=== PATIENT | male | born 1960 | race Hispanic/Latino ===

== ENCOUNTER 2020-11-17 11:11 | Inpatient (IN) | payer OTHER ==
[~2020-11-17] VITALS: Ht 188 cm; Wt 112.5 kg
[2020-11-17] MEDS ORDERED: ONDANSETRON HCL INJ 2MG/ML 2ML 2 MG/ML VIAL IV STA (11:34)
[2020-11-17] MEDS ORDERED: KETOROLAC TROMETHAMINE 30 MG/ML VIAL IV STA (11:34)
[2020-11-17] MEDS ORDERED: ACETAMINOPHEN 325 MG TAB PO ONE (11:45)
[2020-11-17] MEDS ORDERED: SODIUM CHLORIDE 0.9% 1000ML 1,000 ML IV SCH (11:45)
[2020-11-17 11:46] LABS: HEMATOCRIT 48.6 % (38.2-49.6); HEMOGLOBIN 16.1 g/dL (14.0-18.0); LYMPHOCYTES # (AUTO) 0.4 (1.0-3.2); LYMPHOCYTES % 7.5 % (18.0-39.1); MEAN CORPUSCULAR HEMOGLOBIN 29.1 pg (28-32); MEAN CORPUSCULAR HGB CONC 33.1 g/dL (31-35); MEAN CORPUSCULAR VOLUME 87.7 fL (81-99); MONOCYTES # (AUTO) 0.2 (0.2-0.8); MONOCYTES % 2.9 % (4.4-11.3); NEUTROPHILS # (AUTO) 5.3 (2.1-6.9); NEUTROPHILS % 89.3 % (38.7-80.0); PLATELET COUNT 150 x10e3/uL (140-360); RED BLOOD COUNT 5.54 x10e6/uL (4.3-5.7); RED CELL DISTRIBUTION WIDTH 14.5 % (11.7-14.4)
[2020-11-17 12:21] LABS: ALBUMIN 3.1 g/dL (3.5-5.0); ALBUMIN/GLOBULIN RATIO 0.8 (0.8-2.0); ANION GAP 19.3 mmol/L (8-16); CALCIUM 8.1 mg/dL (8.4-10.2); CREATININE, SERUM 1.38 mg/dL (0.72-1.25); POTASSIUM 4.3 mmol/L (3.5-5.1)
[2020-11-17] MEDS ORDERED: DEXAMETHASONE SOD PHOS 10 MG/1 ML VIAL IV ONE (12:45)
[2020-11-17] MEDS ORDERED: ONDANSETRON HCL INJ 2MG/ML 2ML 2 MG/ML VIAL IV PRN (13:00)
[2020-11-17 14:30] VITALS: BP 129/78
[2020-11-17] MEDS ORDERED: REMDESIVIR 200MG/NS 100ML 200 MG in SODIUM CHLORIDE 0.9% 100 ML 100 ML IV ONE (15:00)
[2020-11-17 16:12] VITALS: BP 129/70
[2020-11-17] MEDS: DEXAMETHASONE 4 MG TAB PO SCH (17:12)
[2020-11-17] MEDS: ENOXAPARIN SOD INJ 40 MG/0.4 ML SYR SC SCH (17:12)
[2020-11-17] MEDS: CEFTRIAXONE 1 GM in SODIUM CHLORIDE 0.9% 50ML 50 ML IV SCH ×2 (17:12→19:30)
[2020-11-17] MEDS: SODIUM CHLORIDE 0.9% 1000ML 1,000 ML IV SCH (18:15)
[2020-11-17 20:44] VITALS: BP 129/70
[2020-11-17 21:00] VITALS: BP 176/77
[2020-11-18] VITALS (8 sets, daily range): BP systolic 129–185; BP diastolic 58–76
[2020-11-18 05:14] LABS: HEMATOCRIT 45.2 % (38.2-49.6); HEMOGLOBIN 14.9 g/dL (14.0-18.0); LYMPHOCYTES # (AUTO) 0.5 (1.0-3.2); LYMPHOCYTES % 10.3 % (18.0-39.1); MEAN CORPUSCULAR HEMOGLOBIN 28.6 pg (28-32); MEAN CORPUSCULAR VOLUME 86.8 fL (81-99); MONOCYTES # (AUTO) 0.2 (0.2-0.8); MONOCYTES % 3.6 % (4.4-11.3); NEUTROPHILS # (AUTO) 4.2 (2.1-6.9); NEUTROPHILS % 85.5 % (38.7-80.0); PLATELET COUNT 162 x10e3/uL (140-360); RED BLOOD COUNT 5.21 x10e6/uL (4.3-5.7); RED CELL DISTRIBUTION WIDTH 14.5 % (11.7-14.4)
[2020-11-18] MEDS: SODIUM CHLORIDE 0.9% 1000ML 1,000 ML IV SCH ×3 (05:31→20:56)
[2020-11-18 05:58] LABS: ANION GAP 15.2 mmol/L (8-16); CALCIUM 7.9 mg/dL (8.4-10.2); CREATININE, SERUM 1.15 mg/dL (0.72-1.25); POTASSIUM 4.2 mmol/L (3.5-5.1)
[2020-11-18] MEDS: DEXAMETHASONE 4 MG TAB PO SCH (08:51)
[2020-11-18 09:55] LABS: BAND NEUTROPHILS % (MANUAL) 5 %; LYMPHOCYTES % (MANUAL) 6 % (19-48); MONOCYTES % (MANUAL) 4 % (3.4-9.0); NEUTROPHILS % (MANUAL) 82 % (40-74); PLATELET ESTIMATE ADEQUATE; PLATELET MORPHOLOGY COMMENT NORMAL; RBC MORPHOLOGY COMMENT NORMAL
[2020-11-18] MEDS ORDERED: LABETALOL HCL 5 MG/ML 20ML VIAL IV PRN (10:30)
[2020-11-18] MEDS: CARVEDILOL 3.125 MG TAB PO SCH ×2 (10:45→16:54)
[2020-11-18] MEDS: NIFEDIPINE CR 30 MG TAB PO SCH (10:45)
[2020-11-18] MEDS: CEPACOL SORE THROAT LOZENGES PO PRN ×2 (11:00→16:00)
[2020-11-18] MEDS: REMDESIVIR 100MG/NS 100ML 100 MG in SODIUM CHLORIDE 0.9% 100 ML 100 ML IV SCH (14:00)
[2020-11-18] MEDS: ENOXAPARIN SOD INJ 40 MG/0.4 ML SYR SC SCH (16:54)
[2020-11-19] VITALS (9 sets, daily range): BP systolic 120–153; BP diastolic 57–74
[2020-11-19 05:05] LABS: BASOPHILS % 0.2 % (0.0-1.0); HEMATOCRIT 44.6 % (38.2-49.6); HEMOGLOBIN 14.5 g/dL (14.0-18.0); LYMPHOCYTES # (AUTO) 0.9 (1.0-3.2); LYMPHOCYTES % 17.6 % (18.0-39.1); MEAN CORPUSCULAR HEMOGLOBIN 28.8 pg (28-32); MEAN CORPUSCULAR HGB CONC 32.5 g/dL (31-35); MEAN CORPUSCULAR VOLUME 88.7 fL (81-99); MONOCYTES # (AUTO) 0.4 (0.2-0.8); MONOCYTES % 7.7 % (4.4-11.3); NEUTROPHILS # (AUTO) 3.8 (2.1-6.9); NEUTROPHILS % 73.5 % (38.7-80.0); PLATELET COUNT 183 x10e3/uL (140-360); RED BLOOD COUNT 5.03 x10e6/uL (4.3-5.7); RED CELL DISTRIBUTION WIDTH 14.7 % (11.7-14.4)
[2020-11-19 05:28] LABS: ANION GAP 12.5 mmol/L (8-16); CALCIUM 7.7 mg/dL (8.4-10.2); CREATININE, SERUM 1.05 mg/dL (0.72-1.25); POTASSIUM 4.5 mmol/L (3.5-5.1)
[2020-11-19] MEDS: NIFEDIPINE CR 30 MG TAB PO SCH (09:00)
[2020-11-19] MEDS: CEFTRIAXONE 1 GM in SODIUM CHLORIDE 0.9% 50ML 50 ML IV SCH (09:10)
[2020-11-19] MEDS: DEXAMETHASONE 4 MG TAB PO SCH (09:10)
[2020-11-19] MEDS: CARVEDILOL 3.125 MG TAB PO SCH ×2 (09:10→18:37)
[2020-11-19] MEDS: REMDESIVIR 100MG/NS 100ML 100 MG in SODIUM CHLORIDE 0.9% 100 ML 100 ML IV SCH (14:59)
[2020-11-19] MEDS: ENOXAPARIN SOD INJ 40 MG/0.4 ML SYR SC SCH (18:37)
[2020-11-20] VITALS (14 sets, daily range): BP systolic 126–164; BP diastolic 65–114
[2020-11-20 05:28] LABS: BASOPHILS % 0.3 % (0.0-1.0); HEMATOCRIT 43.7 % (38.2-49.6); HEMOGLOBIN 14.3 g/dL (14.0-18.0); LYMPHOCYTES # (AUTO) 1.2 (1.0-3.2); LYMPHOCYTES % 19.8 % (18.0-39.1); MEAN CORPUSCULAR HGB CONC 32.7 g/dL (31-35); MEAN CORPUSCULAR VOLUME 88.6 fL (81-99); MONOCYTES # (AUTO) 0.6 (0.2-0.8); NEUTROPHILS % 68.7 % (38.7-80.0); PLATELET COUNT 165 x10e3/uL (140-360); RED BLOOD COUNT 4.93 x10e6/uL (4.3-5.7); RED CELL DISTRIBUTION WIDTH 14.9 % (11.7-14.4)
[2020-11-20 05:41] LABS: ALBUMIN 2.4 g/dL (3.5-5.0); ALBUMIN/GLOBULIN RATIO 0.7 (0.8-2.0); ANION GAP 13.3 mmol/L (8-16); CALCIUM 7.9 mg/dL (8.4-10.2); CREATININE, SERUM 0.82 mg/dL (0.72-1.25); POTASSIUM 4.3 mmol/L (3.5-5.1)
[2020-11-20 06:47] LABS: BAND NEUTROPHILS % (MANUAL) 3 %; LYMPHOCYTES % (MANUAL) 18 % (19-48); MONOCYTES % (MANUAL) 12 % (3.4-9.0); NEUTROPHILS % (MANUAL) 67 % (40-74); PLATELET ESTIMATE ADEQUATE; POLYCHROMASIA FEW; RBC MORPHOLOGY COMMENT NORMAL
[2020-11-20] MEDS: CEFTRIAXONE 1 GM in SODIUM CHLORIDE 0.9% 50ML 50 ML IV SCH (09:25)
[2020-11-20] MEDS: CARVEDILOL 3.125 MG TAB PO SCH ×2 (09:25→17:40)
[2020-11-20] MEDS: DEXAMETHASONE 4 MG TAB PO SCH (09:26)
[2020-11-20] MEDS: NIFEDIPINE CR 30 MG TAB PO SCH (09:26)
[2020-11-20] MEDS ORDERED: TOCILIZUMAB 400 MG in SODIUM CHLORIDE 0.9% 100 ML IV ONE (14:00)
[2020-11-20] MEDS: REMDESIVIR 100MG/NS 100ML 100 MG in SODIUM CHLORIDE 0.9% 100 ML 100 ML IV SCH (15:55)
[2020-11-20] MEDS: ENOXAPARIN SOD INJ 40 MG/0.4 ML SYR SC SCH (17:39)
[2020-11-21] VITALS (16 sets, daily range): BP systolic 114–152; BP diastolic 49–100
[2020-11-21] MEDS ORDERED: DEXMEDETOMIDINE 200MCG/NS 50ML 50 ML IV ONE (01:14)
[2020-11-21] MEDS: DEXMEDETOMIDINE 200MCG/NS 50ML 50 ML IV SCH ×3 (01:44→21:00)
[2020-11-21 05:28] LABS: BASOPHILS % 0.3 % (0.0-1.0); HEMATOCRIT 41.5 % (38.2-49.6); HEMOGLOBIN 13.5 g/dL (14.0-18.0); LYMPHOCYTES # (AUTO) 1.2 (1.0-3.2); LYMPHOCYTES % 20.7 % (18.0-39.1); MEAN CORPUSCULAR HEMOGLOBIN 28.8 pg (28-32); MEAN CORPUSCULAR HGB CONC 32.5 g/dL (31-35); MEAN CORPUSCULAR VOLUME 88.5 fL (81-99); MONOCYTES # (AUTO) 0.2 (0.2-0.8); MONOCYTES % 3.3 % (4.4-11.3); NEUTROPHILS # (AUTO) 4.3 (2.1-6.9); NEUTROPHILS % 74.5 % (38.7-80.0); PLATELET COUNT 106 x10e3/uL (140-360); RED BLOOD COUNT 4.69 x10e6/uL (4.3-5.7); RED CELL DISTRIBUTION WIDTH 14.6 % (11.7-14.4)
[2020-11-21 05:56] LABS: ALBUMIN 2.3 g/dL (3.5-5.0); ALBUMIN/GLOBULIN RATIO 0.7 (0.8-2.0); ANION GAP 13.8 mmol/L (8-16); CALCIUM 7.7 mg/dL (8.4-10.2); CREATININE, SERUM 0.73 mg/dL (0.72-1.25); POTASSIUM 3.8 mmol/L (3.5-5.1)
[2020-11-21 08:38] LABS: BAND NEUTROPHILS % (MANUAL) 3 %; LYMPHOCYTES % (MANUAL) 18 % (19-48); MONOCYTES % (MANUAL) 4 % (3.4-9.0); NEUTROPHILS % (MANUAL) 75 % (40-74)
[2020-11-21] MEDS: CARVEDILOL 3.125 MG TAB PO SCH ×2 (09:00→18:10)
[2020-11-21] MEDS: CEFTRIAXONE 1 GM in SODIUM CHLORIDE 0.9% 50ML 50 ML IV SCH (09:52)
[2020-11-21] MEDS: DEXAMETHASONE SOD PHOS 10 MG/1 ML VIAL IV SCH (12:24)
[2020-11-21] MEDS: NIFEDIPINE CR 30 MG TAB PO SCH (12:24)
[2020-11-21] MEDS: REMDESIVIR 100MG/NS 100ML 100 MG in SODIUM CHLORIDE 0.9% 100 ML 100 ML IV SCH (13:51)
[2020-11-21] MEDS ORDERED: SODIUM CHLORIDE 0.9% 250ML 250 ML ONE (13:58)
[2020-11-21] MEDS: ENOXAPARIN SOD INJ 40 MG/0.4 ML SYR SC SCH (18:10)
[2020-11-21] MEDS ORDERED: DEXAMETHASONE SOD PHOS 10 MG/1 ML VIAL IV SCH (21:00)
[2020-11-22] VITALS (26 sets, daily range): BP systolic 109–138; BP diastolic 59–86
[2020-11-22] MEDS: DEXMEDETOMIDINE 200MCG/NS 50ML 50 ML IV SCH ×7 (00:17→22:40)
[2020-11-22 05:00] LABS: BASOPHILS % 0.3 % (0.0-1.0); EOSINOPHILS % 0.3 % (0.0-6.0); HEMATOCRIT 42.3 % (38.2-49.6); HEMOGLOBIN 13.7 g/dL (14.0-18.0); LYMPHOCYTES # (AUTO) 0.8 (1.0-3.2); LYMPHOCYTES % 20.8 % (18.0-39.1); MEAN CORPUSCULAR HEMOGLOBIN 29.1 pg (28-32); MEAN CORPUSCULAR HGB CONC 32.4 g/dL (31-35); MONOCYTES # (AUTO) 0.1 (0.2-0.8); MONOCYTES % 2.8 % (4.4-11.3); NEUTROPHILS # (AUTO) 2.9 (2.1-6.9); NEUTROPHILS % 74.5 % (38.7-80.0); PLATELET COUNT 59 x10e3/uL (140-360); RED CELL DISTRIBUTION WIDTH 14.9 % (11.7-14.4)
[2020-11-22 05:11] LABS: INR 1.3; PARTIAL THROMBOPLASTIN TIME 25.6 seconds (23.8-35.5); PROTHROMBIN TIME 16.4 seconds (11.9-14.5)
[2020-11-22 05:31] LABS: ALBUMIN 2.4 g/dL (3.5-5.0); ALBUMIN/GLOBULIN RATIO 0.6 (0.8-2.0); ANION GAP 18.6 mmol/L (8-16); CALCIUM 7.9 mg/dL (8.4-10.2); CREATININE, SERUM 1.02 mg/dL (0.72-1.25); POTASSIUM 4.6 mmol/L (3.5-5.1)
[2020-11-22] MEDS: DEXAMETHASONE SOD PHOS 10 MG/1 ML VIAL IV SCH (08:28)
[2020-11-22] MEDS: CARVEDILOL 3.125 MG TAB PO SCH ×2 (08:29→16:20)
[2020-11-22] MEDS: NIFEDIPINE CR 30 MG TAB PO SCH (08:29)
[2020-11-22 09:18] LABS: BAND NEUTROPHILS % (MANUAL) 4 %; LYMPHOCYTES % (MANUAL) 10 % (19-48); MONOCYTES % (MANUAL) 5 % (3.4-9.0); NEUTROPHILS % (MANUAL) 81 % (40-74)
[2020-11-22 09:19] LABS: PLATELET ESTIMATE MARKEDLY DECREASED; PLATELET MORPHOLOGY COMMENT FEW LARGE; RBC MORPHOLOGY COMMENT NORMAL
[2020-11-22] MEDS ORDERED: SODIUM CHLORIDE 0.45% 1,000 ML IV ONE (16:00)
[2020-11-22] MEDS: APIXAB 2.5 MG TABLET PO SCH (21:40)
[2020-11-23] VITALS (25 sets, daily range): BP systolic 112–143; BP diastolic 57–84
[2020-11-23] MEDS: DEXMEDETOMIDINE 200MCG/NS 50ML 50 ML IV SCH ×6 (02:08→23:58)
[2020-11-23 04:56] LABS: BASOPHILS % 0.2 % (0.0-1.0); EOSINOPHILS % 0.2 % (0.0-6.0); HEMATOCRIT 42.2 % (38.2-49.6); HEMOGLOBIN 13.6 g/dL (14.0-18.0); LYMPHOCYTES # (AUTO) 0.8 (1.0-3.2); LYMPHOCYTES % 16.3 % (18.0-39.1); MEAN CORPUSCULAR HEMOGLOBIN 29.1 pg (28-32); MEAN CORPUSCULAR HGB CONC 32.2 g/dL (31-35); MEAN CORPUSCULAR VOLUME 90.2 fL (81-99); MONOCYTES # (AUTO) 0.2 (0.2-0.8); MONOCYTES % 4.4 % (4.4-11.3); NEUTROPHILS # (AUTO) 3.9 (2.1-6.9); NEUTROPHILS % 77.3 % (38.7-80.0); PLATELET COUNT 71 x10e3/uL (140-360); RED BLOOD COUNT 4.68 x10e6/uL (4.3-5.7)
[2020-11-23 05:21] LABS: ALBUMIN 2.2 g/dL (3.5-5.0); ALBUMIN/GLOBULIN RATIO 0.5 (0.8-2.0); ANION GAP 15.7 mmol/L (8-16); CALCIUM 7.7 mg/dL (8.4-10.2); CREATININE, SERUM 0.83 mg/dL (0.72-1.25); POTASSIUM 4.7 mmol/L (3.5-5.1)
[2020-11-23] MEDS: DEXAMETHASONE SOD PHOS 10 MG/1 ML VIAL IV SCH (08:57)
[2020-11-23] MEDS: CARVEDILOL 3.125 MG TAB PO SCH ×2 (08:58→17:23)
[2020-11-23] MEDS: NIFEDIPINE CR 30 MG TAB PO SCH ×2 (08:58→09:51)
[2020-11-23] MEDS: APIXAB 2.5 MG TABLET PO SCH (08:58)
[2020-11-23] MEDS ORDERED: SODIUM CHLORIDE 0.45% 1,000 ML IV ONE (12:45)
[2020-11-23] MEDS ORDERED: ARGATROBAN 250 MG in SODIUM CHLORIDE 0.9% 250ML 247.5 ML IV ONE (12:45)
[2020-11-23] MEDS ORDERED: ARGATROBAN IV SCH (14:45)
[2020-11-23] MEDS ORDERED: SODIUM CHLORIDE 0.9% IV SCH (14:45)
[2020-11-23] MEDS: BIVALRIUDIN 250 MG in SODIUM CHLORIDE 0.9% 250ML 250 ML IV SCH (17:08)
[2020-11-23] MEDS ORDERED: APIXABAN 5 MG TABLET PO SCH (21:00)
[2020-11-24] VITALS (26 sets, daily range): BP systolic 135–145; BP diastolic 71–86
[2020-11-24] MEDS: DEXMEDETOMIDINE 200MCG/NS 50ML 50 ML IV SCH ×6 (03:20→21:40)
[2020-11-24 04:57] LABS: BASOPHILS % 0.2 % (0.0-1.0); EOSINOPHILS % 0.3 % (0.0-6.0); HEMATOCRIT 40.9 % (38.2-49.6); HEMOGLOBIN 13.1 g/dL (14.0-18.0); LYMPHOCYTES # (AUTO) 0.8 (1.0-3.2); MEAN CORPUSCULAR HEMOGLOBIN 28.7 pg (28-32); MEAN CORPUSCULAR VOLUME 89.5 fL (81-99); MONOCYTES # (AUTO) 0.4 (0.2-0.8); MONOCYTES % 6.4 % (4.4-11.3); NEUTROPHILS # (AUTO) 4.8 (2.1-6.9); NEUTROPHILS % 78.6 % (38.7-80.0); PLATELET COUNT 71 x10e3/uL (140-360); RED BLOOD COUNT 4.57 x10e6/uL (4.3-5.7); RED CELL DISTRIBUTION WIDTH 14.9 % (11.7-14.4)
[2020-11-24 05:23] LABS: ALBUMIN 1.9 g/dL (3.5-5.0); ALBUMIN/GLOBULIN RATIO 0.4 (0.8-2.0); ANION GAP 16.1 mmol/L (8-16); CALCIUM 7.4 mg/dL (8.4-10.2); CREATININE, SERUM 0.79 mg/dL (0.72-1.25); POTASSIUM 5.1 mmol/L (3.5-5.1)
[2020-11-24] MEDS: DEXAMETHASONE SOD PHOS 10 MG/1 ML VIAL IV SCH (09:20)
[2020-11-24] MEDS: NIFEDIPINE CR 30 MG TAB PO SCH ×2 (09:46→09:49)
[2020-11-24] MEDS: BIVALRIUDIN 250 MG in SODIUM CHLORIDE 0.9% 250ML 250 ML IV SCH (11:30)
[2020-11-24] MEDS ORDERED: DICLOFENAC SOD 50 MG TAB PO SCH (17:00)
[2020-11-24] MEDS: FAMOTIDINE 20 MG/2 ML VIAL IV SCH (17:07)
[2020-11-24] MEDS: DICLOFENAC SOD 1% GEL 100 GM TUBE TP SCH (17:07)
[2020-11-25] VITALS (24 sets, daily range): BP systolic 109–164; BP diastolic 66–90
[2020-11-25] MEDS: DEXMEDETOMIDINE 200MCG/NS 50ML 50 ML IV SCH ×7 (00:36→21:10)
[2020-11-25 06:08] LABS: BASOPHILS % 0.2 % (0.0-1.0); EOSINOPHILS % 0.2 % (0.0-6.0); HEMATOCRIT 42.9 % (38.2-49.6); HEMOGLOBIN 13.8 g/dL (14.0-18.0); LYMPHOCYTES # (AUTO) 0.9 (1.0-3.2); LYMPHOCYTES % 8.9 % (18.0-39.1); MEAN CORPUSCULAR HEMOGLOBIN 28.9 pg (28-32); MEAN CORPUSCULAR HGB CONC 32.2 g/dL (31-35); MEAN CORPUSCULAR VOLUME 89.9 fL (81-99); MONOCYTES # (AUTO) 0.5 (0.2-0.8); MONOCYTES % 5.2 % (4.4-11.3); NEUTROPHILS # (AUTO) 8.4 (2.1-6.9); NEUTROPHILS % 84.1 % (38.7-80.0); PLATELET COUNT 96 x10e3/uL (140-360); RED BLOOD COUNT 4.77 x10e6/uL (4.3-5.7); RED CELL DISTRIBUTION WIDTH 15.1 % (11.7-14.4)
[2020-11-25] MEDS: BIVALRIUDIN 250 MG in SODIUM CHLORIDE 0.9% 250ML 250 ML IV SCH (06:20)
[2020-11-25 06:30] LABS: ALBUMIN 1.9 g/dL (3.5-5.0); ALBUMIN/GLOBULIN RATIO 0.4 (0.8-2.0); ANION GAP 15.1 mmol/L (8-16); CALCIUM 8.1 mg/dL (8.4-10.2); CREATININE, SERUM 0.79 mg/dL (0.72-1.25); POTASSIUM 5.1 mmol/L (3.5-5.1)
[2020-11-25] MEDS: FAMOTIDINE 20 MG/2 ML VIAL IV SCH ×2 (08:31→16:42)
[2020-11-25] MEDS: DEXAMETHASONE SOD PHOS 10 MG/1 ML VIAL IV SCH (08:31)
[2020-11-25] MEDS: DICLOFENAC SOD 1% GEL 100 GM TUBE TP SCH ×2 (08:32→16:45)
[2020-11-25] MEDS: NIFEDIPINE CR 30 MG TAB PO SCH (08:38)
[2020-11-25] MEDS ORDERED: ENOXAPARIN SODIUM INJ 100 MG/ML SYR SC SCH (11:30)
[2020-11-25] MEDS ORDERED: SODIUM CHLORIDE 0.45% 500 ML IV ONE (17:00)
[2020-11-26] VITALS (25 sets, daily range): BP systolic 96–139; BP diastolic 51–98
[2020-11-26] MEDS: DEXMEDETOMIDINE 200MCG/NS 50ML 50 ML IV SCH ×9 (00:04→23:30)
[2020-11-26] MEDS: ENOXAPARIN SODIUM INJ 100 MG/ML SYR SC SCH ×2 (00:09→12:21)
[2020-11-26 05:52] LABS: BASOPHILS % 0.3 % (0.0-1.0); EOSINOPHILS # (AUTO) 0.1 (0.0-0.4); EOSINOPHILS % 0.7 % (0.0-6.0); HEMATOCRIT 41.9 % (38.2-49.6); HEMOGLOBIN 13.5 g/dL (14.0-18.0); LYMPHOCYTES # (AUTO) 0.8 (1.0-3.2); LYMPHOCYTES % 7.6 % (18.0-39.1); MEAN CORPUSCULAR HGB CONC 32.2 g/dL (31-35); MEAN CORPUSCULAR VOLUME 90.1 fL (81-99); MONOCYTES # (AUTO) 0.4 (0.2-0.8); MONOCYTES % 4.2 % (4.4-11.3); NEUTROPHILS # (AUTO) 8.8 (2.1-6.9); NEUTROPHILS % 85.1 % (38.7-80.0); PLATELET COUNT 95 x10e3/uL (140-360); RED BLOOD COUNT 4.65 x10e6/uL (4.3-5.7); RED CELL DISTRIBUTION WIDTH 15.1 % (11.7-14.4)
[2020-11-26 06:44] LABS: ALBUMIN 1.8 g/dL (3.5-5.0); ALBUMIN/GLOBULIN RATIO 0.4 (0.8-2.0); CALCIUM 7.7 mg/dL (8.4-10.2); CREATININE, SERUM 0.75 mg/dL (0.72-1.25)
[2020-11-26] MEDS: NIFEDIPINE CR 30 MG TAB PO SCH (07:58)
[2020-11-26] MEDS: FAMOTIDINE 20 MG/2 ML VIAL IV SCH ×2 (07:58→16:04)
[2020-11-26] MEDS: DEXAMETHASONE SOD PHOS 10 MG/1 ML VIAL IV SCH (07:58)
[2020-11-26] MEDS: DICLOFENAC SOD 1% GEL 100 GM TUBE TP SCH ×2 (07:58→16:04)
[2020-11-26] MEDS ORDERED: SODIUM CHLORIDE 0.45% 500 ML IV ONE (11:30)
[2020-11-27] VITALS (26 sets, daily range): BP systolic 113–146; BP diastolic 59–76
[2020-11-27] MEDS: ENOXAPARIN SODIUM INJ 100 MG/ML SYR SC SCH ×3 (00:23→23:57)
[2020-11-27] MEDS: DEXMEDETOMIDINE 200MCG/NS 50ML 50 ML IV SCH ×10 (01:00→23:57)
[2020-11-27 05:15] LABS: BASOPHILS % 0.2 % (0.0-1.0); EOSINOPHILS # (AUTO) 0.1 (0.0-0.4); EOSINOPHILS % 0.4 % (0.0-6.0); HEMATOCRIT 39.3 % (38.2-49.6); HEMOGLOBIN 12.7 g/dL (14.0-18.0); LYMPHOCYTES # (AUTO) 1.5 (1.0-3.2); LYMPHOCYTES % 11.2 % (18.0-39.1); MEAN CORPUSCULAR HEMOGLOBIN 29.3 pg (28-32); MEAN CORPUSCULAR HGB CONC 32.3 g/dL (31-35); MEAN CORPUSCULAR VOLUME 90.8 fL (81-99); MONOCYTES # (AUTO) 0.4 (0.2-0.8); NEUTROPHILS % 83.3 % (38.7-80.0); PLATELET COUNT 120 x10e3/uL (140-360); RED BLOOD COUNT 4.33 x10e6/uL (4.3-5.7); RED CELL DISTRIBUTION WIDTH 15.4 % (11.7-14.4)
[2020-11-27 05:31] LABS: ALBUMIN 1.7 g/dL (3.5-5.0); ALBUMIN/GLOBULIN RATIO 0.4 (0.8-2.0); CALCIUM 7.6 mg/dL (8.4-10.2); CREATININE, SERUM 0.67 mg/dL (0.72-1.25)
[2020-11-27] MEDS: DEXAMETHASONE SOD PHOS 10 MG/1 ML VIAL IV SCH (09:53)
[2020-11-27] MEDS: FAMOTIDINE 20 MG/2 ML VIAL IV SCH ×2 (09:53→16:06)
[2020-11-27] MEDS: DICLOFENAC SOD 1% GEL 100 GM TUBE TP SCH ×2 (09:54→16:06)
[2020-11-27] MEDS: NIFEDIPINE CR 30 MG TAB PO SCH (09:54)
[2020-11-28] VITALS (26 sets, daily range): BP systolic 113–143; BP diastolic 52–81
[2020-11-28] MEDS: DEXMEDETOMIDINE 200MCG/NS 50ML 50 ML IV PRN ×10 (01:50→23:37)
[2020-11-28 06:10] LABS: BASOPHILS % 0.2 % (0.0-1.0); EOSINOPHILS # (AUTO) 0.1 (0.0-0.4); EOSINOPHILS % 0.7 % (0.0-6.0); HEMATOCRIT 39.3 % (38.2-49.6); HEMOGLOBIN 12.7 g/dL (14.0-18.0); LYMPHOCYTES # (AUTO) 1.3 (1.0-3.2); LYMPHOCYTES % 11.9 % (18.0-39.1); MEAN CORPUSCULAR HEMOGLOBIN 29.6 pg (28-32); MEAN CORPUSCULAR HGB CONC 32.3 g/dL (31-35); MEAN CORPUSCULAR VOLUME 91.6 fL (81-99); MONOCYTES # (AUTO) 0.4 (0.2-0.8); MONOCYTES % 3.7 % (4.4-11.3); NEUTROPHILS # (AUTO) 9.1 (2.1-6.9); NEUTROPHILS % 81.4 % (38.7-80.0); PLATELET COUNT 146 x10e3/uL (140-360); RED BLOOD COUNT 4.29 x10e6/uL (4.3-5.7); RED CELL DISTRIBUTION WIDTH 15.6 % (11.7-14.4)
[2020-11-28 06:50] LABS: ALBUMIN 1.7 g/dL (3.5-5.0); ALBUMIN/GLOBULIN RATIO 0.4 (0.8-2.0); ANION GAP 12.8 mmol/L (8-16); CALCIUM 7.6 mg/dL (8.4-10.2); CREATININE, SERUM 0.67 mg/dL (0.72-1.25); POTASSIUM 4.8 mmol/L (3.5-5.1)
[2020-11-28] MEDS: DEXAMETHASONE SOD PHOS 10 MG/1 ML VIAL IV SCH (07:49)
[2020-11-28] MEDS: FAMOTIDINE 20 MG/2 ML VIAL IV SCH ×2 (07:49→17:02)
[2020-11-28] MEDS: DICLOFENAC SOD 1% GEL 100 GM TUBE TP SCH ×2 (07:50→17:02)
[2020-11-28] MEDS: NIFEDIPINE CR 30 MG TAB PO SCH (07:50)
[2020-11-28] MEDS: ENOXAPARIN SODIUM INJ 100 MG/ML SYR SC SCH ×2 (11:42→23:36)
[2020-11-29] VITALS (25 sets, daily range): BP systolic 108–154; BP diastolic 56–88
[2020-11-29] MEDS: DEXMEDETOMIDINE 200MCG/NS 50ML 50 ML IV PRN ×4 (03:32→18:52)
[2020-11-29 05:23] LABS: BASOPHILS % 0.2 % (0.0-1.0); EOSINOPHILS % 0.3 % (0.0-6.0); HEMATOCRIT 39.9 % (38.2-49.6); HEMOGLOBIN 12.8 g/dL (14.0-18.0); LYMPHOCYTES # (AUTO) 1.5 (1.0-3.2); LYMPHOCYTES % 13.1 % (18.0-39.1); MEAN CORPUSCULAR HEMOGLOBIN 29.5 pg (28-32); MEAN CORPUSCULAR HGB CONC 32.1 g/dL (31-35); MEAN CORPUSCULAR VOLUME 91.9 fL (81-99); MONOCYTES # (AUTO) 0.6 (0.2-0.8); NEUTROPHILS # (AUTO) 9.3 (2.1-6.9); NEUTROPHILS % 80.2 % (38.7-80.0); PLATELET COUNT 164 x10e3/uL (140-360); RED BLOOD COUNT 4.34 x10e6/uL (4.3-5.7); RED CELL DISTRIBUTION WIDTH 15.5 % (11.7-14.4)
[2020-11-29 06:16] LABS: ALBUMIN 1.7 g/dL (3.5-5.0); ALBUMIN/GLOBULIN RATIO 0.4 (0.8-2.0); ANION GAP 13.6 mmol/L (8-16); CALCIUM 7.8 mg/dL (8.4-10.2); CREATININE, SERUM 0.67 mg/dL (0.72-1.25); POTASSIUM 4.6 mmol/L (3.5-5.1)
[2020-11-29] MEDS: FAMOTIDINE 20 MG/2 ML VIAL IV SCH ×2 (08:22→17:53)
[2020-11-29] MEDS: NIFEDIPINE CR 30 MG TAB PO SCH (08:23)
[2020-11-29] MEDS: DICLOFENAC SOD 1% GEL 100 GM TUBE TP SCH ×2 (08:24→17:55)
[2020-11-29] MEDS: ENOXAPARIN SODIUM INJ 100 MG/ML SYR SC SCH (11:40)
[2020-11-30] VITALS (25 sets, daily range): BP systolic 112–148; BP diastolic 62–85
[2020-11-30] MEDS: DEXMEDETOMIDINE 200MCG/NS 50ML 50 ML IV PRN ×8 (00:34→19:45)
[2020-11-30] MEDS: ENOXAPARIN SODIUM INJ 100 MG/ML SYR SC SCH ×2 (01:17→11:31)
[2020-11-30 05:59] LABS: BASOPHILS % 0.1 % (0.0-1.0); EOSINOPHILS % 0.3 % (0.0-6.0); HEMATOCRIT 40.3 % (38.2-49.6); HEMOGLOBIN 12.6 g/dL (14.0-18.0); LYMPHOCYTES # (AUTO) 1.2 (1.0-3.2); MEAN CORPUSCULAR HEMOGLOBIN 28.8 pg (28-32); MEAN CORPUSCULAR HGB CONC 31.3 g/dL (31-35); MONOCYTES # (AUTO) 0.7 (0.2-0.8); MONOCYTES % 4.9 % (4.4-11.3); NEUTROPHILS # (AUTO) 12.5 (2.1-6.9); NEUTROPHILS % 85.6 % (38.7-80.0); PLATELET COUNT 187 x10e3/uL (140-360); RED BLOOD COUNT 4.38 x10e6/uL (4.3-5.7); RED CELL DISTRIBUTION WIDTH 15.7 % (11.7-14.4)
[2020-11-30 06:44] LABS: ALBUMIN 1.6 g/dL (3.5-5.0); ALBUMIN/GLOBULIN RATIO 0.4 (0.8-2.0); ANION GAP 16.3 mmol/L (8-16); CALCIUM 7.7 mg/dL (8.4-10.2); CREATININE, SERUM 0.67 mg/dL (0.72-1.25); POTASSIUM 4.3 mmol/L (3.5-5.1)
[2020-11-30] MEDS: FAMOTIDINE 20 MG/2 ML VIAL IV SCH ×2 (08:11→16:58)
[2020-11-30] MEDS: DICLOFENAC SOD 1% GEL 100 GM TUBE TP SCH ×2 (08:12→16:58)
[2020-11-30] MEDS: NIFEDIPINE CR 30 MG TAB PO SCH ×2 (08:12→09:00)
[2020-12-01] VITALS (24 sets, daily range): BP systolic 96–173; BP diastolic 45–93
[2020-12-01] MEDS: DEXMEDETOMIDINE 200MCG/NS 50ML 50 ML IV PRN ×7 (00:20→11:39)
[2020-12-01 06:45] LABS: BASOPHILS % 0.2 % (0.0-1.0); EOSINOPHILS % 0.1 % (0.0-6.0); HEMOGLOBIN 12.1 g/dL (14.0-18.0); LYMPHOCYTES # (AUTO) 1.2 (1.0-3.2); LYMPHOCYTES % 6.4 % (18.0-39.1); MEAN CORPUSCULAR HEMOGLOBIN 29.4 pg (28-32); MEAN CORPUSCULAR HGB CONC 31.8 g/dL (31-35); MEAN CORPUSCULAR VOLUME 92.5 fL (81-99); MONOCYTES # (AUTO) 0.9 (0.2-0.8); MONOCYTES % 4.8 % (4.4-11.3); NEUTROPHILS # (AUTO) 16.7 (2.1-6.9); NEUTROPHILS % 87.6 % (38.7-80.0); PLATELET COUNT 190 x10e3/uL (140-360); RED BLOOD COUNT 4.11 x10e6/uL (4.3-5.7); RED CELL DISTRIBUTION WIDTH 16.1 % (11.7-14.4)
[2020-12-01] MEDS: DICLOFENAC SOD 1% GEL 100 GM TUBE TP SCH ×2 (07:44→17:04)
[2020-12-01] MEDS: FAMOTIDINE 20 MG/2 ML VIAL IV SCH ×2 (07:44→17:09)
[2020-12-01] MEDS: NIFEDIPINE CR 30 MG TAB PO SCH (07:44)
[2020-12-01] MEDS ORDERED: LACTATED RINGER'S 500 ML INJ ONE (11:30)
[2020-12-01] MEDS: ENOXAPARIN SODIUM INJ 100 MG/ML SYR SC SCH ×2 (11:36)
[2020-12-01] MEDS ORDERED: Vancomycin IV 1 GM in SODIUM CHLORIDE 0.9% 250ML 250 ML IV ONE (12:15)
[2020-12-01] MEDS: CEFEPIME 1 GM in SODIUM CHLORIDE 0.9% 50ML 50 ML IV SCH ×2 (12:17→21:30)
[2020-12-01] MEDS: MIDAZOLAM HCL 5MG/ML 10ML VIAL 100 ML IV PRN ×3 (13:53→21:30)
[2020-12-01] MEDS: FENTANYL 2000MCG/NS 250 250 ML IV SCH (13:54)
[2020-12-01] MEDS ORDERED: ROCURONIUM 1250MG/NS 250 250 ML IV SCH (14:00)
[2020-12-01 17:06] LABS: ABG PCO2 54 mmHg (35-45); ABG PH 7.27 (7.35-7.45); ABG PO2 79 mmHg (80-105)
[2020-12-01 17:07] LABS: ABG HCO3 25 mmol/L (22-26); ABG TCO2 26
[2020-12-01 17:16] LABS: ABG PH 7.18 (7.35-7.45)
[2020-12-01 17:17] LABS: ABG HCO3 28 mmol/L (22-26); ABG PCO2 76 mmHg (35-45); ABG PO2 98 mmHg (80-105); ABG TCO2 31
[2020-12-01] MEDS ORDERED: LACTATED RINGER'S 1,000 ML INJ ONE (19:30)
[2020-12-01] MEDS ORDERED: VECURONIUM BROMIDE FOR INJ 20 MG VIAL ONE (19:45)
[2020-12-01] MEDS ORDERED: ETOMIDATE 2 MG/ML 10 ML INJ IV ONE (19:45)
[2020-12-01] MEDS ORDERED: SUCCINYLCHOLINE CHLORIDE 20 MG/ML 10ML VIAL ONE (19:45)
[2020-12-01] MEDS ORDERED: MIDAZOLAM HCL 2 MG/2 ML VIAL ONE (19:45)
[2020-12-01] MEDS ORDERED: WATER STERILE 10 ML VIAL ONE (19:45)
[2020-12-01 19:49] LABS: ABG PH 7.19 (7.35-7.45)
[2020-12-01 19:50] LABS: ABG HCO3 27 mmol/L (22-26); ABG PCO2 72 mmHg (35-45); ABG PO2 110 mmHg (80-105); ABG TCO2 30
[2020-12-01] MEDS ORDERED: NOREPINEPHRINE 8 MG/D5W 250 ML 250 ML ONE (20:44)
[2020-12-01] MEDS: NOREPINEPHRINE 8 MG/D5W 250 ML 250 ML IV PRN (20:51)
[2020-12-01 23:01] LABS: ABG PH 7.27 (7.35-7.45)
[2020-12-01 23:02] LABS: ABG HCO3 26 mmol/L (22-26); ABG PCO2 56 mmHg (35-45); ABG PO2 150 mmHg (80-105); ABG TCO2 27
[2020-12-01] MEDS ORDERED: SODIUM CHLORIDE 0.9% 250ML 250 ML ONE (23:05)
[2020-12-01] MEDS: ROCURONIUM BROMIDE IV SCH (23:30)
[2020-12-01] MEDS: ROCURONIUM IV SCH (23:30)
[2020-12-01] MEDS: [UNRECOGNIZED DRUG - OTHER] IV SCH (23:30)
[2020-12-02] VITALS (26 sets, daily range): BP systolic 81–112; BP diastolic 40–77
[2020-12-02] MEDS: ENOXAPARIN SODIUM INJ 100 MG/ML SYR SC SCH ×2 (01:00→12:29)
[2020-12-02] MEDS ORDERED: HEPARIN SOD/SOD CHLORIDE 1,000 ML ONE (02:38)
[2020-12-02] MEDS: MIDAZOLAM HCL 5MG/ML 10ML VIAL 100 ML IV PRN ×4 (04:15→20:30)
[2020-12-02] MEDS: FENTANYL 2000MCG/NS 250 250 ML IV SCH ×3 (04:15→16:11)
[2020-12-02 05:25] LABS: BASOPHILS % 0.2 % (0.0-1.0); EOSINOPHILS # (AUTO) 0.1 (0.0-0.4); EOSINOPHILS % 0.4 % (0.0-6.0); HEMATOCRIT 38.4 % (38.2-49.6); HEMOGLOBIN 11.6 g/dL (14.0-18.0); LYMPHOCYTES # (AUTO) 2.1 (1.0-3.2); LYMPHOCYTES % 11.6 % (18.0-39.1); MEAN CORPUSCULAR HEMOGLOBIN 29.3 pg (28-32); MEAN CORPUSCULAR HGB CONC 30.2 g/dL (31-35); MONOCYTES # (AUTO) 1.4 (0.2-0.8); MONOCYTES % 7.7 % (4.4-11.3); NEUTROPHILS # (AUTO) 14.5 (2.1-6.9); NEUTROPHILS % 78.7 % (38.7-80.0); PLATELET COUNT 254 x10e3/uL (140-360); RED BLOOD COUNT 3.96 x10e6/uL (4.3-5.7); RED CELL DISTRIBUTION WIDTH 16.5 % (11.7-14.4)
[2020-12-02 05:42] LABS: ALBUMIN 1.4 g/dL (3.5-5.0); ALBUMIN/GLOBULIN RATIO 0.3 (0.8-2.0); ANION GAP 14.5 mmol/L (8-16); CALCIUM 7.4 mg/dL (8.4-10.2); CREATININE, SERUM 0.81 mg/dL (0.72-1.25); POTASSIUM 4.5 mmol/L (3.5-5.1)
[2020-12-02] MEDS: NOREPINEPHRINE 8 MG/D5W 250 ML 250 ML IV PRN ×2 (08:59→23:00)
[2020-12-02 09:00] LABS: ABG HCO3 25 mmol/L (22-26); ABG PCO2 54 mmHg (35-45); ABG PH 7.27 (7.35-7.45); ABG PO2 119 mmHg (80-105); ABG TCO2 26
[2020-12-02] MEDS: NIFEDIPINE CR 30 MG TAB PO SCH (09:00)
[2020-12-02] MEDS: DICLOFENAC SOD 1% GEL 100 GM TUBE TP SCH ×2 (09:00→16:11)
[2020-12-02] MEDS: FAMOTIDINE 20 MG/2 ML VIAL IV SCH ×2 (09:03→16:11)
[2020-12-02] MEDS: CEFEPIME 1 GM in SODIUM CHLORIDE 0.9% 50ML 50 ML IV SCH ×2 (09:03→20:56)
[2020-12-02] MEDS: ROCURONIUM BROMIDE IV SCH (09:04)
[2020-12-02] MEDS: ROCURONIUM IV SCH (09:04)
[2020-12-02] MEDS: [UNRECOGNIZED DRUG - OTHER] IV SCH (09:04)
[2020-12-02] MEDS ORDERED: ROCURONIUM 1250MG/NS 250 250 ML ONE (09:12)
[2020-12-03] VITALS (25 sets, daily range): BP systolic 86–120; BP diastolic 49–66
[2020-12-03] MEDS: FENTANYL 2000MCG/NS 250 250 ML IV SCH ×4 (00:20→19:40)
[2020-12-03] MEDS: ENOXAPARIN SODIUM INJ 100 MG/ML SYR SC SCH ×2 (00:20→13:25)
[2020-12-03] MEDS: MIDAZOLAM HCL 5MG/ML 10ML VIAL 100 ML IV PRN ×5 (01:38→21:44)
[2020-12-03 05:31] LABS: BASOPHILS % 0.2 % (0.0-1.0); EOSINOPHILS # (AUTO) 0.1 (0.0-0.4); EOSINOPHILS % 0.9 % (0.0-6.0); HEMATOCRIT 33.1 % (38.2-49.6); HEMOGLOBIN 10.1 g/dL (14.0-18.0); LYMPHOCYTES # (AUTO) 1.9 (1.0-3.2); LYMPHOCYTES % 12.9 % (18.0-39.1); MEAN CORPUSCULAR HGB CONC 30.5 g/dL (31-35); MEAN CORPUSCULAR VOLUME 98.2 fL (81-99); MONOCYTES # (AUTO) 1.4 (0.2-0.8); MONOCYTES % 9.5 % (4.4-11.3); NEUTROPHILS # (AUTO) 11.3 (2.1-6.9); NEUTROPHILS % 75.5 % (38.7-80.0); PLATELET COUNT 219 x10e3/uL (140-360); RED BLOOD COUNT 3.37 x10e6/uL (4.3-5.7); RED CELL DISTRIBUTION WIDTH 16.8 % (11.7-14.4)
[2020-12-03 05:48] LABS: ALBUMIN 1.3 g/dL (3.5-5.0); ALBUMIN/GLOBULIN RATIO 0.3 (0.8-2.0); ANION GAP 12.4 mmol/L (8-16); CALCIUM 7.2 mg/dL (8.4-10.2); CREATININE, SERUM 0.75 mg/dL (0.72-1.25); POTASSIUM 4.4 mmol/L (3.5-5.1)
[2020-12-03] MEDS: ROCURONIUM BROMIDE IV SCH (06:33)
[2020-12-03] MEDS: [UNRECOGNIZED DRUG - OTHER] IV SCH (06:33)
[2020-12-03] MEDS: ROCURONIUM IV SCH (06:33)
[2020-12-03] MEDS ORDERED: ROCURONIUM 1250MG/NS 250 250 ML ONE (06:34)
[2020-12-03] MEDS: NIFEDIPINE CR 30 MG TAB PO SCH (09:00)
[2020-12-03] MEDS: FAMOTIDINE 20 MG/2 ML VIAL IV SCH ×2 (09:43→17:58)
[2020-12-03] MEDS: CEFEPIME 1 GM in SODIUM CHLORIDE 0.9% 50ML 50 ML IV SCH ×2 (09:43→20:47)
[2020-12-03] MEDS: DICLOFENAC SOD 1% GEL 100 GM TUBE TP SCH ×2 (09:44→17:58)
[2020-12-03 09:51] LABS: ABG HCO3 27 mmol/L (22-26); ABG PCO2 54 mmHg (35-45); ABG PH 7.31 (7.35-7.45); ABG PO2 73 mmHg (80-105); ABG TCO2 29
[2020-12-03 13:03] LABS: FERRITIN 1905.44 ng/mL (21.81-274.66)
[2020-12-04] VITALS (25 sets, daily range): BP systolic 90–136; BP diastolic 47–67
[2020-12-04] MEDS: ENOXAPARIN SODIUM INJ 100 MG/ML SYR SC SCH ×3 (00:11→23:47)
[2020-12-04] MEDS: [UNRECOGNIZED DRUG - OTHER] IV SCH (02:47)
[2020-12-04] MEDS: ROCURONIUM BROMIDE IV SCH (02:47)
[2020-12-04] MEDS: ROCURONIUM IV SCH (02:47)
[2020-12-04] MEDS: MIDAZOLAM HCL 5MG/ML 10ML VIAL 100 ML IV PRN ×4 (02:48→18:48)
[2020-12-04] MEDS: FENTANYL 2000MCG/NS 250 250 ML IV SCH ×3 (02:48→16:47)
[2020-12-04 05:54] LABS: BASOPHILS # (AUTO) 0.1 (0.0-0.1); BASOPHILS % 0.4 % (0.0-1.0); EOSINOPHILS # (AUTO) 0.2 (0.0-0.4); EOSINOPHILS % 1.4 % (0.0-6.0); HEMATOCRIT 31.9 % (38.2-49.6); HEMOGLOBIN 9.4 g/dL (14.0-18.0); LYMPHOCYTES # (AUTO) 2.4 (1.0-3.2); LYMPHOCYTES % 14.3 % (18.0-39.1); MEAN CORPUSCULAR HEMOGLOBIN 29.3 pg (28-32); MEAN CORPUSCULAR HGB CONC 29.5 g/dL (31-35); MEAN CORPUSCULAR VOLUME 99.4 fL (81-99); MONOCYTES # (AUTO) 1.5 (0.2-0.8); MONOCYTES % 8.9 % (4.4-11.3); NEUTROPHILS # (AUTO) 12.3 (2.1-6.9); NEUTROPHILS % 72.9 % (38.7-80.0); PLATELET COUNT 199 x10e3/uL (140-360); RED BLOOD COUNT 3.21 x10e6/uL (4.3-5.7); RED CELL DISTRIBUTION WIDTH 17.2 % (11.7-14.4)
[2020-12-04 06:19] LABS: ALBUMIN 1.2 g/dL (3.5-5.0); ALBUMIN/GLOBULIN RATIO 0.3 (0.8-2.0); ANION GAP 11.4 mmol/L (8-16); CALCIUM 7.3 mg/dL (8.4-10.2); CREATININE, SERUM 0.76 mg/dL (0.72-1.25); POTASSIUM 4.4 mmol/L (3.5-5.1)
[2020-12-04] MEDS: DICLOFENAC SOD 1% GEL 100 GM TUBE TP SCH ×2 (08:19→16:49)
[2020-12-04] MEDS: FAMOTIDINE 20 MG/2 ML VIAL IV SCH ×2 (08:19→16:49)
[2020-12-04] MEDS: CEFEPIME 1 GM in SODIUM CHLORIDE 0.9% 50ML 50 ML IV SCH ×2 (08:19→21:33)
[2020-12-04 09:04] LABS: ABG HCO3 29 mmol/L (22-26); ABG PCO2 57 mmHg (35-45); ABG PH 7.32 (7.35-7.45); ABG PO2 52 mmHg (80-105); ABG TCO2 31
[2020-12-04] MEDS: FOLIC ACID 1 MG TAB NG SCH (12:31)
[2020-12-04] MEDS ORDERED: ROCURONIUM 1250MG/NS 250 250 ML ONE (23:41)
[2020-12-05] VITALS (22 sets, daily range): BP systolic 109–138; BP diastolic 48–55
[2020-12-05] MEDS: ROCURONIUM BROMIDE IV SCH (00:05)
[2020-12-05] MEDS: ROCURONIUM IV SCH (00:05)
[2020-12-05] MEDS: FENTANYL 2000MCG/NS 250 250 ML IV SCH ×4 (00:05→19:26)
[2020-12-05] MEDS: [UNRECOGNIZED DRUG - OTHER] IV SCH (00:05)
[2020-12-05] MEDS: MIDAZOLAM HCL 5MG/ML 10ML VIAL 100 ML IV PRN ×4 (00:05→15:30)
[2020-12-05 05:39] LABS: BASOPHILS # (AUTO) 0.1 (0.0-0.1); BASOPHILS % 0.4 % (0.0-1.0); EOSINOPHILS # (AUTO) 0.3 (0.0-0.4); EOSINOPHILS % 1.7 % (0.0-6.0); HEMATOCRIT 30.5 % (38.2-49.6); LYMPHOCYTES # (AUTO) 2.7 (1.0-3.2); LYMPHOCYTES % 14.7 % (18.0-39.1); MEAN CORPUSCULAR HEMOGLOBIN 29.6 pg (28-32); MEAN CORPUSCULAR HGB CONC 29.5 g/dL (31-35); MEAN CORPUSCULAR VOLUME 100.3 fL (81-99); MONOCYTES # (AUTO) 1.2 (0.2-0.8); MONOCYTES % 6.6 % (4.4-11.3); NEUTROPHILS % 71.8 % (38.7-80.0); PLATELET COUNT 184 x10e3/uL (140-360); RED BLOOD COUNT 3.04 x10e6/uL (4.3-5.7); RED CELL DISTRIBUTION WIDTH 17.4 % (11.7-14.4)
[2020-12-05 05:50] LABS: ALBUMIN 1.2 g/dL (3.5-5.0); ALBUMIN/GLOBULIN RATIO 0.3 (0.8-2.0); ANION GAP 11.3 mmol/L (8-16); CALCIUM 7.2 mg/dL (8.4-10.2); CREATININE, SERUM 0.81 mg/dL (0.72-1.25); POTASSIUM 4.3 mmol/L (3.5-5.1)
[2020-12-05] MEDS: DICLOFENAC SOD 1% GEL 100 GM TUBE TP SCH ×2 (08:25→16:42)
[2020-12-05] MEDS: FOLIC ACID 1 MG TAB NG SCH (08:25)
[2020-12-05] MEDS: FAMOTIDINE 20 MG/2 ML VIAL IV SCH ×2 (08:25→16:42)
[2020-12-05] MEDS: CEFEPIME 1 GM in SODIUM CHLORIDE 0.9% 50ML 50 ML IV SCH (08:25)
[2020-12-05] MEDS: NOREPINEPHRINE 8 MG/D5W 250 ML 250 ML IV PRN (08:28)
[2020-12-05] MEDS ORDERED: ALTEPLASE RECOMBINANT 2 MG/2 ML VIAL IV ONE (09:00)
[2020-12-05 09:04] LABS: ABG HCO3 29 mmol/L (22-26); ABG PCO2 57 mmHg (35-45); ABG PH 7.32 (7.35-7.45); ABG PO2 86 mmHg (80-105); ABG TCO2 31
[2020-12-05] MEDS: ENOXAPARIN SODIUM INJ 100 MG/ML SYR SC SCH (12:00)
[2020-12-05 12:13] LABS: AMYLASE 40 U/L (25-125); LIPASE 17 U/L (8-78)
[2020-12-05] MEDS: BALSAM PERU/CASTOR OIL 60 GM OINT...G. TP SCH (16:42)
[2020-12-05] MEDS: METOCLOPRAMIDE HCL 10 MG/2ML VIAL IV SCH (18:04)
[2020-12-06] VITALS (27 sets, daily range): BP systolic 91–138; BP diastolic 48–66
[2020-12-06] MEDS: METOCLOPRAMIDE HCL 10 MG/2ML VIAL IV SCH ×5 (00:56→23:39)
[2020-12-06] MEDS: ENOXAPARIN SODIUM INJ 100 MG/ML SYR SC SCH ×3 (00:56→23:39)
[2020-12-06 07:04] LABS: BASOPHILS # (AUTO) 0.1 (0.0-0.1); BASOPHILS % 0.4 % (0.0-1.0); EOSINOPHILS # (AUTO) 0.2 (0.0-0.4); EOSINOPHILS % 1.3 % (0.0-6.0); HEMATOCRIT 31.7 % (38.2-49.6); HEMOGLOBIN 9.3 g/dL (14.0-18.0); LYMPHOCYTES % 11.8 % (18.0-39.1); MEAN CORPUSCULAR HEMOGLOBIN 29.7 pg (28-32); MEAN CORPUSCULAR HGB CONC 29.3 g/dL (31-35); MEAN CORPUSCULAR VOLUME 101.3 fL (81-99); MONOCYTES # (AUTO) 1.1 (0.2-0.8); MONOCYTES % 6.7 % (4.4-11.3); NEUTROPHILS # (AUTO) 12.4 (2.1-6.9); PLATELET COUNT 183 x10e3/uL (140-360); RED BLOOD COUNT 3.13 x10e6/uL (4.3-5.7); RED CELL DISTRIBUTION WIDTH 19.1 % (11.7-14.4)
[2020-12-06 07:18] LABS: ABG PH 7.28 (7.35-7.45)
[2020-12-06 07:19] LABS: ABG HCO3 31 mmol/L (22-26); ABG PCO2 66 mmHg (35-45); ABG PO2 61 mmHg (80-105); ABG TCO2 33
[2020-12-06 07:28] LABS: ALBUMIN 1.1 g/dL (3.5-5.0); ALBUMIN/GLOBULIN RATIO 0.3 (0.8-2.0); ANION GAP 10.4 mmol/L (8-16); CALCIUM 7.2 mg/dL (8.4-10.2); CREATININE, SERUM 0.87 mg/dL (0.72-1.25); POTASSIUM 4.4 mmol/L (3.5-5.1)
[2020-12-06] MEDS ORDERED: ROCURONIUM 1250MG/NS 250 250 ML ONE (07:48)
[2020-12-06] MEDS: FAMOTIDINE 20 MG/2 ML VIAL IV SCH ×2 (08:00→16:35)
[2020-12-06] MEDS: FOLIC ACID 1 MG TAB NG SCH (08:00)
[2020-12-06] MEDS: DICLOFENAC SOD 1% GEL 100 GM TUBE TP SCH ×2 (08:00→16:35)
[2020-12-06] MEDS ORDERED: ALBUMIN 25% 25GM 100ML 0.25 GM/ML BTL IV SCH (08:00)
[2020-12-06] MEDS: BALSAM PERU/CASTOR OIL 60 GM OINT...G. TP SCH (08:00)
[2020-12-06 08:25] LABS: BAND NEUTROPHILS % (MANUAL) 1 %; EOSINOPHILS % (MANUAL) 1 % (0-7); LYMPHOCYTES % (MANUAL) 17 % (19-48); MONOCYTES % (MANUAL) 4 % (3.4-9.0); NEUTROPHILS % (MANUAL) 77 % (40-74); NUCLEATED RED BLOOD CELLS 8
[2020-12-06 08:27] LABS: ANISOCYTOSIS MODERATE; HYPOCHROMASIA MODERATE; PLATELET ESTIMATE ADEQUATE; PLATELET MORPHOLOGY COMMENT FEW LARGE; POLYCHROMASIA FEW; RBC MORPHOLOGY COMMENT ABNORMAL
[2020-12-06] MEDS: MIDAZOLAM HCL 5MG/ML 10ML VIAL 100 ML IV PRN ×3 (08:36→19:20)
[2020-12-06] MEDS: FENTANYL 2000MCG/NS 250 250 ML IV SCH ×3 (08:36→21:40)
[2020-12-06] MEDS: ALBUMIN 25% 25GM 100ML 100 ML IV SCH ×3 (08:40→23:40)
[2020-12-06] MEDS: FUROSEMIDE INJ 10 MG/ML 4 ML VIAL IV SCH ×2 (08:41→21:30)
[2020-12-06] MEDS ORDERED: ALTEPLASE RECOMBINANT 2 MG/2 ML VIAL IV ONE (09:30)
[2020-12-06 09:50] LABS: ABG HCO3 30 mmol/L (22-26); ABG PCO2 64 mmHg (35-45); ABG PH 7.28 (7.35-7.45); ABG PO2 59 mmHg (80-105); ABG TCO2 32
[2020-12-06] MEDS: [UNRECOGNIZED DRUG - OTHER] IV SCH (23:30)
[2020-12-06] MEDS: ROCURONIUM IV SCH (23:30)
[2020-12-06] MEDS: ROCURONIUM BROMIDE IV SCH (23:30)
[2020-12-07] VITALS (27 sets, daily range): BP systolic 108–141; BP diastolic 46–58
[2020-12-07] MEDS: MIDAZOLAM HCL 5MG/ML 10ML VIAL 100 ML IV PRN ×5 (00:07→22:02)
[2020-12-07] MEDS: METOCLOPRAMIDE HCL 10 MG/2ML VIAL IV SCH ×3 (05:00→16:25)
[2020-12-07 05:26] LABS: BASOPHILS # (AUTO) 0.1 (0.0-0.1); BASOPHILS % 0.3 % (0.0-1.0); EOSINOPHILS # (AUTO) 0.1 (0.0-0.4); EOSINOPHILS % 0.9 % (0.0-6.0); HEMATOCRIT 27.9 % (38.2-49.6); HEMOGLOBIN 8.1 g/dL (14.0-18.0); MEAN CORPUSCULAR HEMOGLOBIN 29.9 pg (28-32); MONOCYTES # (AUTO) 0.9 (0.2-0.8); MONOCYTES % 6.1 % (4.4-11.3); NEUTROPHILS # (AUTO) 11.4 (2.1-6.9); NEUTROPHILS % 76.1 % (38.7-80.0); PLATELET COUNT 155 x10e3/uL (140-360); RED BLOOD COUNT 2.71 x10e6/uL (4.3-5.7); RED CELL DISTRIBUTION WIDTH 20.4 % (11.7-14.4)
[2020-12-07 05:52] LABS: ALBUMIN 2.4 g/dL (3.5-5.0); ALBUMIN/GLOBULIN RATIO 0.7 (0.8-2.0); ANION GAP 14.9 mmol/L (8-16); CALCIUM 7.6 mg/dL (8.4-10.2); CREATININE, SERUM 1.55 mg/dL (0.72-1.25); POTASSIUM 3.9 mmol/L (3.5-5.1)
[2020-12-07] MEDS: FENTANYL 2000MCG/NS 250 250 ML IV SCH ×2 (06:00→10:52)
[2020-12-07 07:51] LABS: ABG HCO3 32 mmol/L (22-26); ABG PCO2 69 mmHg (35-45); ABG PH 7.27 (7.35-7.45); ABG PO2 67 mmHg (80-105); ABG TCO2 34
[2020-12-07] MEDS: BALSAM PERU/CASTOR OIL 60 GM OINT...G. TP SCH (08:01)
[2020-12-07] MEDS: FUROSEMIDE INJ 10 MG/ML 4 ML VIAL IV SCH (08:01)
[2020-12-07] MEDS: FOLIC ACID 1 MG TAB NG SCH (08:01)
[2020-12-07] MEDS: FAMOTIDINE 20 MG/2 ML VIAL IV SCH ×2 (08:01→16:25)
[2020-12-07] MEDS: DICLOFENAC SOD 1% GEL 100 GM TUBE TP SCH (08:04)
[2020-12-07 10:07] LABS: BAND NEUTROPHILS % (MANUAL) 2 %; EOSINOPHILS % (MANUAL) 1 % (0-7); LYMPHOCYTES % (MANUAL) 15 % (19-48); METAMYELOCYTES % (MANUAL) 3 % (0-0); MONOCYTES % (MANUAL) 2 % (3.4-9.0); NEUTROPHILS % (MANUAL) 77 % (40-74); NUCLEATED RED BLOOD CELLS 8
[2020-12-07 10:08] LABS: HYPERSEGMENTED NEUTROPHILS FEW; HYPOCHROMASIA MARKED; MICROCYTOSIS MODERATE; PLATELET MORPHOLOGY COMMENT FEW LARGE; POIKILOCYTOSIS MARKED; RBC MORPHOLOGY COMMENT NORMAL; SMUDGE CELLS FEW
[2020-12-07 10:09] LABS: PLATELET ESTIMATE ADEQUATE
[2020-12-07] MEDS ORDERED: ALBUMIN 25% 25GM 100ML 0.25 GM/ML BTL IV SCH (12:00)
[2020-12-07] MEDS: ENOXAPARIN SODIUM INJ 100 MG/ML SYR SC SCH (13:22)
[2020-12-07] MEDS: ALBUMIN 25% 25GM 100ML 100 ML IV SCH ×2 (13:22→20:35)
[2020-12-07] MEDS ORDERED: DEXTROSE 5% 1,000 ML IV SCH (14:15)
[2020-12-08] VITALS (26 sets, daily range): BP systolic 80–152; BP diastolic 41–80
[2020-12-08] MEDS: METOCLOPRAMIDE HCL 10 MG/2ML VIAL IV SCH ×3 (00:15→12:25)
[2020-12-08] MEDS: ENOXAPARIN SODIUM INJ 100 MG/ML SYR SC SCH (00:15)
[2020-12-08] MEDS: FENTANYL 2000MCG/NS 250 250 ML IV SCH ×4 (00:18→21:25)
[2020-12-08] MEDS: ROCURONIUM BROMIDE IV SCH (01:26)
[2020-12-08] MEDS: [UNRECOGNIZED DRUG - OTHER] IV SCH (01:26)
[2020-12-08] MEDS: ROCURONIUM IV SCH (01:26)
[2020-12-08] MEDS: ALBUMIN 25% 25GM 100ML 100 ML IV SCH (04:28)
[2020-12-08 05:15] LABS: BASOPHILS # (AUTO) 0.1 (0.0-0.1); BASOPHILS % 0.3 % (0.0-1.0); EOSINOPHILS # (AUTO) 0.3 (0.0-0.4); EOSINOPHILS % 1.9 % (0.0-6.0); HEMATOCRIT 26.5 % (38.2-49.6); HEMOGLOBIN 7.7 g/dL (14.0-18.0); LYMPHOCYTES % 13.8 % (18.0-39.1); MEAN CORPUSCULAR HEMOGLOBIN 30.4 pg (28-32); MEAN CORPUSCULAR HGB CONC 29.1 g/dL (31-35); MEAN CORPUSCULAR VOLUME 104.7 fL (81-99); MONOCYTES # (AUTO) 1.1 (0.2-0.8); MONOCYTES % 7.3 % (4.4-11.3); NEUTROPHILS # (AUTO) 10.7 (2.1-6.9); NEUTROPHILS % 73.4 % (38.7-80.0); PLATELET COUNT 166 x10e3/uL (140-360); RED BLOOD COUNT 2.53 x10e6/uL (4.3-5.7); RED CELL DISTRIBUTION WIDTH 22.5 % (11.7-14.4)
[2020-12-08 05:58] LABS: ALBUMIN 3.1 g/dL (3.5-5.0); ALBUMIN/GLOBULIN RATIO 1.1 (0.8-2.0); CALCIUM 7.9 mg/dL (8.4-10.2); CREATININE, SERUM 2.05 mg/dL (0.72-1.25)
[2020-12-08] MEDS: MIDAZOLAM HCL 5MG/ML 10ML VIAL 100 ML IV PRN ×4 (06:31→23:48)
[2020-12-08 09:12] LABS: ABG PH 7.27 (7.35-7.45)
[2020-12-08 09:14] LABS: ABG HCO3 30 mmol/L (22-26); ABG PCO2 66 mmHg (35-45); ABG PO2 60 mmHg (80-105); ABG TCO2 32
[2020-12-08] MEDS: FOLIC ACID 1 MG TAB NG SCH (10:14)
[2020-12-08] MEDS: BALSAM PERU/CASTOR OIL 60 GM OINT...G. TP SCH (10:14)
[2020-12-08] MEDS: FAMOTIDINE 20 MG/2 ML VIAL IV SCH (10:14)
[2020-12-08] MEDS ORDERED: HEPARIN 25,000 UNIT DRIP IV ONE ×2 (12:59→13:00)
[2020-12-08 13:12] LABS: BASOPHILS # (AUTO) 0.1 (0.0-0.1); BASOPHILS % 0.3 % (0.0-1.0); EOSINOPHILS # (AUTO) 0.1 (0.0-0.4); EOSINOPHILS % 0.8 % (0.0-6.0); HEMATOCRIT 27.2 % (38.2-49.6); HEMOGLOBIN 7.8 g/dL (14.0-18.0); LYMPHOCYTES # (AUTO) 1.6 (1.0-3.2); MEAN CORPUSCULAR HEMOGLOBIN 30.2 pg (28-32); MEAN CORPUSCULAR HGB CONC 28.7 g/dL (31-35); MEAN CORPUSCULAR VOLUME 105.4 fL (81-99); MONOCYTES # (AUTO) 1.3 (0.2-0.8); MONOCYTES % 8.5 % (4.4-11.3); NEUTROPHILS # (AUTO) 12.1 (2.1-6.9); NEUTROPHILS % 77.8 % (38.7-80.0); PLATELET COUNT 171 x10e3/uL (140-360); RED BLOOD COUNT 2.58 x10e6/uL (4.3-5.7); RED CELL DISTRIBUTION WIDTH 22.8 % (11.7-14.4)
[2020-12-08 13:28] LABS: INR 1.18; PROTHROMBIN TIME 15.3 seconds (11.9-14.5)
[2020-12-08] MEDS: HEPARIN 25,000 UNIT 1,500 UNIT in DEXTROSE 5% 250ML 250 ML IV SCH (14:49)
[2020-12-08] MEDS ORDERED: FUROSEMIDE INJ 10 MG/ML 4 ML VIAL IV ONE (16:00)
[2020-12-08 20:40] LABS: INR 1.19; PROTHROMBIN TIME 15.4 seconds (11.9-14.5)
[2020-12-09] VITALS (26 sets, daily range): BP systolic 88–127; BP diastolic 43–64
[2020-12-09] MEDS: FENTANYL 2000MCG/NS 250 250 ML IV SCH ×3 (03:41→17:33)
[2020-12-09] MEDS ORDERED: ROCURONIUM 1250MG/NS 250 250 ML ONE (03:55)
[2020-12-09] MEDS: MIDAZOLAM HCL 5MG/ML 10ML VIAL 100 ML IV PRN ×4 (05:16→17:25)
[2020-12-09] MEDS: METOCLOPRAMIDE HCL 10 MG/2ML VIAL IV SCH ×4 (05:22→17:25)
[2020-12-09 05:24] LABS: BASOPHILS # (AUTO) 0.1 (0.0-0.1); BASOPHILS % 0.4 % (0.0-1.0); EOSINOPHILS # (AUTO) 0.2 (0.0-0.4); EOSINOPHILS % 1.1 % (0.0-6.0); HEMATOCRIT 28.1 % (38.2-49.6); HEMOGLOBIN 8.2 g/dL (14.0-18.0); LYMPHOCYTES % 11.3 % (18.0-39.1); MEAN CORPUSCULAR HEMOGLOBIN 30.9 pg (28-32); MEAN CORPUSCULAR HGB CONC 29.2 g/dL (31-35); MONOCYTES # (AUTO) 1.6 (0.2-0.8); MONOCYTES % 9.3 % (4.4-11.3); NEUTROPHILS # (AUTO) 12.8 (2.1-6.9); NEUTROPHILS % 73.7 % (38.7-80.0); PLATELET COUNT 202 x10e3/uL (140-360); RED BLOOD COUNT 2.65 x10e6/uL (4.3-5.7); RED CELL DISTRIBUTION WIDTH 23.7 % (11.7-14.4)
[2020-12-09] MEDS: ROCURONIUM BROMIDE IV SCH ×2 (05:51→23:30)
[2020-12-09] MEDS: ROCURONIUM IV SCH ×2 (05:51→23:30)
[2020-12-09] MEDS: [UNRECOGNIZED DRUG - OTHER] IV SCH ×2 (05:51→23:30)
[2020-12-09 06:06] LABS: ALBUMIN 2.5 g/dL (3.5-5.0); ALBUMIN/GLOBULIN RATIO 0.8 (0.8-2.0); ANION GAP 18.1 mmol/L (8-16); CALCIUM 7.7 mg/dL (8.4-10.2); CREATININE, SERUM 3.18 mg/dL (0.72-1.25)
[2020-12-09 06:29] LABS: POTASSIUM 5.1 mmol/L (3.5-5.1)
[2020-12-09] MEDS: HEPARIN 25,000 UNIT 1,500 UNIT in DEXTROSE 5% 250ML 250 ML IV SCH (06:44)
[2020-12-09] MEDS: FAMOTIDINE 20 MG/2 ML VIAL IV SCH ×3 (07:03→17:25)
[2020-12-09] MEDS: NOREPINEPHRINE 8 MG/D5W 250 ML 250 ML IV SCH ×3 (08:02→21:30)
[2020-12-09 08:05] LABS: ABG HCO3 28 mmol/L (22-26); ABG PCO2 84 mmHg (35-45); ABG PH 7.13 (7.35-7.45); ABG PO2 59 mmHg (80-105); ABG TCO2 30
[2020-12-09] MEDS ORDERED: NOREPINEPHRINE 8 MG/D5W 250 ML 250 ML ONE (08:12)
[2020-12-09] MEDS ORDERED: SODIUM BICARBONATE 8.4% SYRING 100 ML ONE (08:15)
[2020-12-09] MEDS ORDERED: SODIUM BICARBONATE 8.4% INJ 50 ML SYR IV ONE (08:30)
[2020-12-09] MEDS: FOLIC ACID 1 MG TAB NG SCH (08:45)
[2020-12-09] MEDS: SODIUM BICARBONATE 8.4% 150 ML in DEXTROSE 5% 1,000 ML IV SCH ×2 (08:45→20:15)
[2020-12-09] MEDS: BALSAM PERU/CASTOR OIL 60 GM OINT...G. TP SCH (08:46)
[2020-12-09 08:52] LABS: BAND NEUTROPHILS % (MANUAL) 3 %; EOSINOPHILS % (MANUAL) 1 % (0-7); LYMPHOCYTES % (MANUAL) 15 % (19-48); METAMYELOCYTES % (MANUAL) 2 % (0-0); MONOCYTES % (MANUAL) 7 % (3.4-9.0); MYELOCYTES % (MANUAL) 2 % (0-0); NEUTROPHILS % (MANUAL) 70 % (40-74); NUCLEATED RED BLOOD CELLS 13
[2020-12-09 08:53] LABS: ANISOCYTOSIS MARKED; HYPOCHROMASIA MODERATE; PLATELET ESTIMATE ADEQUATE; PLATELET MORPHOLOGY COMMENT NORMAL; POLYCHROMASIA MODERATE; RBC MORPHOLOGY COMMENT ABNORMAL
[2020-12-09] MEDS ORDERED: MANNITOL 25% 12.5GM/50ML 100 ML ONE (13:46)
[2020-12-09] MEDS ORDERED: SODIUM CHLORIDE 0.9% 1000ML 2,000 ML ONE (13:46)
[2020-12-09] MEDS ORDERED: ALBUMIN 25% 25GM 100ML 200 ML ONE (13:46)
[2020-12-09] MEDS ORDERED: HEPARIN SOD (PORCINE) 1000 UNIT/ML SDV ONE (13:47)
[2020-12-09] MEDS ORDERED: ALBUMIN 25% 12.5GM 0.25 GM/ML BTL IV PRN (15:30)
[2020-12-09] MEDS ORDERED: SODIUM CHLORIDE 0.9% 1000ML 2,000 ML IV PRN (15:30)
[2020-12-09] MEDS ORDERED: MANNITOL 25% 12.5GM/50 ML VIAL IV PRN (15:30)
[2020-12-09] MEDS ORDERED: HEPARIN SOD (PORCINE) 1000 UNIT/ML SDV IV PRN (15:30)
[2020-12-10] VITALS (30 sets, daily range): BP systolic 51–163; BP diastolic 50–76
[2020-12-10] MEDS: FENTANYL 2000MCG/NS 250 250 ML IV SCH ×3 (00:34→13:25)
[2020-12-10] MEDS: MIDAZOLAM HCL 5MG/ML 10ML VIAL 100 ML IV PRN ×3 (00:35→17:51)
[2020-12-10] MEDS: METOCLOPRAMIDE HCL 10 MG/2ML VIAL IV SCH ×4 (00:37→17:40)
[2020-12-10] MEDS: SODIUM BICARBONATE 8.4% 150 ML in DEXTROSE 5% 1,000 ML IV SCH ×3 (00:37→23:08)
[2020-12-10] MEDS: HEPARIN 25,000 UNIT 1,500 UNIT in DEXTROSE 5% 250ML 250 ML IV SCH ×2 (03:52→17:51)
[2020-12-10] MEDS ORDERED: HEPARIN 25,000 UNIT DRIP IV ONE ×2 (03:56→03:57)
[2020-12-10 05:25] LABS: BASOPHILS # (AUTO) 0.1 (0.0-0.1); BASOPHILS % 0.5 % (0.0-1.0); EOSINOPHILS # (AUTO) 0.4 (0.0-0.4); EOSINOPHILS % 2.5 % (0.0-6.0); HEMATOCRIT 26.2 % (38.2-49.6); HEMOGLOBIN 7.5 g/dL (14.0-18.0); LYMPHOCYTES # (AUTO) 2.9 (1.0-3.2); LYMPHOCYTES % 19.8 % (18.0-39.1); MEAN CORPUSCULAR HEMOGLOBIN 30.4 pg (28-32); MEAN CORPUSCULAR HGB CONC 28.6 g/dL (31-35); MEAN CORPUSCULAR VOLUME 106.1 fL (81-99); NEUTROPHILS # (AUTO) 9.4 (2.1-6.9); NEUTROPHILS % 65.5 % (38.7-80.0); PLATELET COUNT 183 x10e3/uL (140-360); RED BLOOD COUNT 2.47 x10e6/uL (4.3-5.7); RED CELL DISTRIBUTION WIDTH 24.2 % (11.7-14.4)
[2020-12-10 05:44] LABS: ALBUMIN 2.7 g/dL (3.5-5.0); ANION GAP 18.5 mmol/L (8-16); CALCIUM 7.5 mg/dL (8.4-10.2); CREATININE, SERUM 3.37 mg/dL (0.72-1.25); POTASSIUM 4.5 mmol/L (3.5-5.1)
[2020-12-10] MEDS: BALSAM PERU/CASTOR OIL 60 GM OINT...G. TP SCH (09:19)
[2020-12-10] MEDS: FAMOTIDINE 20 MG/2 ML VIAL IV SCH ×2 (09:19→17:40)
[2020-12-10] MEDS: FOLIC ACID 1 MG TAB NG SCH (09:19)
[2020-12-10 09:36] LABS: ABG PH 7.23 (7.35-7.45)
[2020-12-10 09:37] LABS: ABG HCO3 31 mmol/L (22-26); ABG PCO2 74 mmHg (35-45); ABG PO2 120 mmHg (80-105); ABG TCO2 33
[2020-12-10 10:04] LABS: EOSINOPHILS % (MANUAL) 3 % (0-7); LYMPHOCYTES % (MANUAL) 6 % (19-48); METAMYELOCYTES % (MANUAL) 2 % (0-0); MONOCYTES % (MANUAL) 3 % (3.4-9.0); MYELOCYTES % (MANUAL) 1 % (0-0); NEUTROPHILS % (MANUAL) 78 % (40-74); NUCLEATED RED BLOOD CELLS 63; PLATELET ESTIMATE ADEQUATE; PLATELET MORPHOLOGY COMMENT FEW LARGE; RBC MORPHOLOGY COMMENT NORMAL; SMUDGE CELLS FEW
[2020-12-10 10:05] LABS: ANISOCYTOSIS MODERATE; MICROCYTOSIS SLIG; POIKILOCYTOSIS MODERATE; POLYCHROMASIA FEW
[2020-12-10 10:07] LABS: HYPOCHROMASIA SLIGHT
[2020-12-10] MEDS: NOREPINEPHRINE 8 MG/D5W 250 ML 250 ML IV SCH (11:01)
[2020-12-10 15:17] LABS: INR 1.27; PROTHROMBIN TIME 16.2 seconds (11.9-14.5)
[2020-12-10] MEDS ORDERED: DEXTROSE 5% 1,000 ML IV ONE (16:02)
[2020-12-10] MEDS ORDERED: HEPARIN SOD/SOD CHLORIDE 1,000 ML ONE (22:10)
[2020-12-10] MEDS: ROCURONIUM IV SCH (23:30)
[2020-12-10] MEDS: ROCURONIUM BROMIDE IV SCH (23:30)
[2020-12-10] MEDS: [UNRECOGNIZED DRUG - OTHER] IV SCH (23:30)
[2020-12-11] VITALS (25 sets, daily range): BP systolic 88–146; BP diastolic 37–72
[2020-12-11] MEDS: BALSAM PERU/CASTOR OIL 60 GM OINT...G. TP SCH (00:26)
[2020-12-11] MEDS: HEPARIN 25,000 UNIT 1,500 UNIT in DEXTROSE 5% 250ML 250 ML IV SCH ×4 (00:32→20:47)
[2020-12-11] MEDS: FENTANYL 2000MCG/NS 250 250 ML IV SCH ×5 (03:19→23:44)
[2020-12-11] MEDS: NOREPINEPHRINE 8 MG/D5W 250 ML 250 ML IV SCH ×2 (03:56→17:19)
[2020-12-11] MEDS: MIDAZOLAM HCL 5MG/ML 10ML VIAL 100 ML IV PRN ×3 (03:58→17:32)
[2020-12-11] MEDS: METOCLOPRAMIDE HCL 10 MG/2ML VIAL IV SCH ×4 (05:33→18:23)
[2020-12-11] MEDS: SODIUM BICARBONATE 8.4% 150 ML in DEXTROSE 5% 1,000 ML IV SCH ×3 (05:40→23:58)
[2020-12-11 06:56] LABS: ALBUMIN 2.2 g/dL (3.5-5.0); ALBUMIN/GLOBULIN RATIO 0.7 (0.8-2.0); ANION GAP 16.1 mmol/L (8-16); CALCIUM 7.4 mg/dL (8.4-10.2); CREATININE, SERUM 3.29 mg/dL (0.72-1.25); POTASSIUM 4.1 mmol/L (3.5-5.1)
[2020-12-11 08:41] LABS: ABG HCO3 34 mmol/L (22-26); ABG PCO2 86 mmHg (35-45); ABG PO2 59 mmHg (80-105); ABG TCO2 36
[2020-12-11] MEDS: FAMOTIDINE 20 MG/2 ML VIAL IV SCH ×2 (09:28→17:29)
[2020-12-11] MEDS: FOLIC ACID 1 MG TAB NG SCH (09:28)
[2020-12-11 10:46] LABS: BASOPHILS # (AUTO) 0.1 (0.0-0.1); BASOPHILS % 0.4 % (0.0-1.0); EOSINOPHILS # (AUTO) 0.1 (0.0-0.4); HEMATOCRIT 27.4 % (38.2-49.6); HEMOGLOBIN 7.7 g/dL (14.0-18.0); LYMPHOCYTES # (AUTO) 1.8 (1.0-3.2); LYMPHOCYTES % 13.5 % (18.0-39.1); MEAN CORPUSCULAR HEMOGLOBIN 30.2 pg (28-32); MEAN CORPUSCULAR HGB CONC 28.1 g/dL (31-35); MEAN CORPUSCULAR VOLUME 107.5 fL (81-99); MONOCYTES # (AUTO) 1.4 (0.2-0.8); MONOCYTES % 10.5 % (4.4-11.3); NEUTROPHILS # (AUTO) 9.3 (2.1-6.9); NEUTROPHILS % 69.6 % (38.7-80.0); PLATELET COUNT 169 x10e3/uL (140-360); RED BLOOD COUNT 2.55 x10e6/uL (4.3-5.7); RED CELL DISTRIBUTION WIDTH 25.6 % (11.7-14.4)
[2020-12-11] MEDS: CALCIUM CARBONATE 500 MG CHEWABLE TABS PO SCH ×2 (15:13→20:58)
[2020-12-11 16:39] LABS: ABG PH 7.25 (7.35-7.45)
[2020-12-11 16:40] LABS: ABG HCO3 34 mmol/L (22-26); ABG PCO2 78 mmHg (35-45); ABG PO2 60 mmHg (80-105); ABG TCO2 37
[2020-12-11] MEDS ORDERED: ROCURONIUM 1250MG/NS 250 250 ML ONE (21:31)
[2020-12-11] MEDS: ROCURONIUM IV SCH (23:43)
[2020-12-11] MEDS: [UNRECOGNIZED DRUG - OTHER] IV SCH (23:43)
[2020-12-11] MEDS: ROCURONIUM BROMIDE IV SCH (23:43)
[2020-12-12] VITALS (26 sets, daily range): BP systolic 109–160; BP diastolic 40–55
[2020-12-12] MEDS: METOCLOPRAMIDE HCL 10 MG/2ML VIAL IV SCH ×4 (02:37→17:10)
[2020-12-12 04:45] LABS: BASOPHILS # (AUTO) 0.1 (0.0-0.1); BASOPHILS % 0.6 % (0.0-1.0); EOSINOPHILS # (AUTO) 0.2 (0.0-0.4); EOSINOPHILS % 1.4 % (0.0-6.0); HEMATOCRIT 27.5 % (38.2-49.6); HEMOGLOBIN 7.9 g/dL (14.0-18.0); LYMPHOCYTES % 18.8 % (18.0-39.1); MEAN CORPUSCULAR HEMOGLOBIN 30.3 pg (28-32); MEAN CORPUSCULAR HGB CONC 28.7 g/dL (31-35); MEAN CORPUSCULAR VOLUME 105.4 fL (81-99); MONOCYTES # (AUTO) 2.2 (0.2-0.8); MONOCYTES % 13.8 % (4.4-11.3); NEUTROPHILS # (AUTO) 9.3 (2.1-6.9); NEUTROPHILS % 58.1 % (38.7-80.0); PLATELET COUNT 184 x10e3/uL (140-360); RED BLOOD COUNT 2.61 x10e6/uL (4.3-5.7); RED CELL DISTRIBUTION WIDTH 26.1 % (11.7-14.4)
[2020-12-12 05:06] LABS: ALBUMIN 2.1 g/dL (3.5-5.0); ALBUMIN/GLOBULIN RATIO 0.6 (0.8-2.0); ANION GAP 17.7 mmol/L (8-16); CALCIUM 7.7 mg/dL (8.4-10.2); CREATININE, SERUM 2.91 mg/dL (0.72-1.25); POTASSIUM 3.7 mmol/L (3.5-5.1)
[2020-12-12] MEDS: MIDAZOLAM HCL 5MG/ML 10ML VIAL 100 ML IV PRN ×3 (06:33→15:56)
[2020-12-12] MEDS: FENTANYL 2000MCG/NS 250 250 ML IV SCH ×2 (06:39→20:11)
[2020-12-12] MEDS: CALCIUM CARBONATE 500 MG CHEWABLE TABS PO SCH ×3 (08:47→21:15)
[2020-12-12] MEDS: FUROSEMIDE INJ 10 MG/ML 4 ML VIAL IV SCH (08:47)
[2020-12-12] MEDS: FAMOTIDINE 20 MG/2 ML VIAL IV SCH ×2 (08:47→17:10)
[2020-12-12] MEDS: FOLIC ACID 1 MG TAB NG SCH (08:48)
[2020-12-12] MEDS: BALSAM PERU/CASTOR OIL 60 GM OINT...G. TP SCH (08:48)
[2020-12-12 09:48] LABS: ABG HCO3 37 mmol/L (22-26); ABG PCO2 90 mmHg (35-45); ABG PH 7.22 (7.35-7.45); ABG PO2 66 mmHg (80-105); ABG TCO2 39
[2020-12-12] MEDS ORDERED: DEXTROSE 5% 1,000 ML IV ONE (09:50)
[2020-12-12] MEDS: SODIUM BICARBONATE 8.4% 150 ML in DEXTROSE 5% 1,000 ML IV SCH (17:49)
[2020-12-12] MEDS: HEPARIN 25,000 UNIT 1,500 UNIT in DEXTROSE 5% 250ML 250 ML IV SCH (18:20)
[2020-12-12] MEDS: NOREPINEPHRINE 8 MG/D5W 250 ML 250 ML IV SCH ×3 (19:44→21:21)
[2020-12-12] MEDS: ROCURONIUM BROMIDE IV SCH (23:54)
[2020-12-12] MEDS: ROCURONIUM IV SCH (23:54)
[2020-12-12] MEDS: [UNRECOGNIZED DRUG - OTHER] IV SCH (23:54)
[2020-12-13] VITALS (25 sets, daily range): BP systolic 94–140; BP diastolic 41–64
[2020-12-13] MEDS: METOCLOPRAMIDE HCL 10 MG/2ML VIAL IV SCH ×4 (00:01→18:32)
[2020-12-13] MEDS: MIDAZOLAM HCL 5MG/ML 10ML VIAL 100 ML IV PRN ×4 (02:53→16:27)
[2020-12-13] MEDS: SODIUM BICARBONATE 8.4% 150 ML in DEXTROSE 5% 1,000 ML IV SCH ×2 (05:11→18:31)
[2020-12-13 05:41] LABS: BASOPHILS # (AUTO) 0.1 (0.0-0.1); BASOPHILS % 0.7 % (0.0-1.0); EOSINOPHILS # (AUTO) 0.3 (0.0-0.4); EOSINOPHILS % 1.8 % (0.0-6.0); HEMATOCRIT 25.6 % (38.2-49.6); HEMOGLOBIN 7.5 g/dL (14.0-18.0); LYMPHOCYTES # (AUTO) 2.3 (1.0-3.2); LYMPHOCYTES % 16.8 % (18.0-39.1); MEAN CORPUSCULAR HEMOGLOBIN 29.9 pg (28-32); MEAN CORPUSCULAR HGB CONC 29.3 g/dL (31-35); MONOCYTES # (AUTO) 1.6 (0.2-0.8); NEUTROPHILS # (AUTO) 8.2 (2.1-6.9); NEUTROPHILS % 60.7 % (38.7-80.0); PLATELET COUNT 162 x10e3/uL (140-360); RED BLOOD COUNT 2.51 x10e6/uL (4.3-5.7); RED CELL DISTRIBUTION WIDTH 25.6 % (11.7-14.4)
[2020-12-13 06:19] LABS: ALBUMIN 1.8 g/dL (3.5-5.0); ALBUMIN/GLOBULIN RATIO 0.6 (0.8-2.0); ANION GAP 17.8 mmol/L (8-16); CALCIUM 7.4 mg/dL (8.4-10.2); CREATININE, SERUM 3.49 mg/dL (0.72-1.25); POTASSIUM 3.8 mmol/L (3.5-5.1)
[2020-12-13 08:20] LABS: ABG HCO3 38 mmol/L (22-26); ABG PCO2 80 mmHg (35-45); ABG PH 7.28 (7.35-7.45); ABG PO2 52 mmHg (80-105); ABG TCO2 40
[2020-12-13] MEDS: CALCIUM CARBONATE 500 MG CHEWABLE TABS PO SCH ×3 (09:20→21:23)
[2020-12-13] MEDS: FUROSEMIDE INJ 10 MG/ML 4 ML VIAL IV SCH (09:20)
[2020-12-13] MEDS: FAMOTIDINE 20 MG/2 ML VIAL IV SCH ×2 (09:20→18:32)
[2020-12-13] MEDS: BALSAM PERU/CASTOR OIL 60 GM OINT...G. TP SCH (09:20)
[2020-12-13 09:27] LABS: BAND NEUTROPHILS % (MANUAL) 9 %; EOSINOPHILS % (MANUAL) 1 % (0-7); LYMPHOCYTES % (MANUAL) 20 % (19-48); MONOCYTES % (MANUAL) 10 % (3.4-9.0); MYELOCYTES % (MANUAL) 4 % (0-0); NEUTROPHILS % (MANUAL) 56 % (40-74); NUCLEATED RED BLOOD CELLS 44
[2020-12-13 09:28] LABS: ANISOCYTOSIS MODERATE; PLATELET ESTIMATE ADEQUATE; POLYCHROMASIA FEW
[2020-12-13 09:30] LABS: HYPOCHROMASIA SLIGHT
[2020-12-13 09:31] LABS: PLATELET MORPHOLOGY COMMENT FEW GIANT; RBC MORPHOLOGY COMMENT ABNORMAL
[2020-12-13] MEDS: FOLIC ACID 1 MG TAB NG SCH (10:13)
[2020-12-13] MEDS ORDERED: FENTANYL 2000MCG/NS 250 250 ML IV SCH (11:15)
[2020-12-13] MEDS: FENTANYL 2000MCG/NS 250 250 ML IV PRN ×3 (11:45→23:51)
[2020-12-13] MEDS ORDERED: DEXTROSE 50% SYRINGE 50 ML IV PRN (20:45)
[2020-12-13] MEDS ORDERED: INSULIN LISPRO 100 UNIT/1 ML 3ML VIAL SQ SCH (21:00)
[2020-12-13] MEDS: NOREPINEPHRINE 8 MG/D5W 250 ML 250 ML IV SCH ×2 (21:42→22:49)
[2020-12-13] MEDS ORDERED: VASOPRESSIN INJ 20 UNIT/ML VIAL ONE (21:48)
[2020-12-13] MEDS ORDERED: DEXTROSE 5% 50ML 50 ML IV ONE (21:51)
[2020-12-13] MEDS: VASOPRESSIN 60 UNIT in DEXTROSE 5% 50ML 57 ML IV SCH (22:02)
[2020-12-13] MEDS: ROCURONIUM IV SCH (23:37)
[2020-12-13] MEDS: ROCURONIUM BROMIDE IV SCH (23:37)
[2020-12-13] MEDS: [UNRECOGNIZED DRUG - OTHER] IV SCH (23:37)
[2020-12-14] VITALS (25 sets, daily range): BP systolic 97–151; BP diastolic 41–73
[2020-12-14] MEDS: HEPARIN 25,000 UNIT 1,500 UNIT in DEXTROSE 5% 250ML 250 ML IV SCH (01:18)
[2020-12-14] MEDS: NOREPINEPHRINE 8 MG/D5W 250 ML 250 ML IV SCH ×3 (01:34→04:36)
[2020-12-14] MEDS ORDERED: ROCURONIUM 1250MG/NS 250 250 ML ONE (01:50)
[2020-12-14] MEDS: [UNRECOGNIZED DRUG - OTHER] IV SCH (01:57)
[2020-12-14] MEDS: ROCURONIUM BROMIDE IV SCH (01:57)
[2020-12-14] MEDS: ROCURONIUM IV SCH (01:57)
[2020-12-14] MEDS: MIDAZOLAM HCL 5MG/ML 10ML VIAL 100 ML IV PRN ×3 (03:26→14:13)
[2020-12-14] MEDS: SODIUM BICARBONATE 8.4% 150 ML in DEXTROSE 5% 1,000 ML IV SCH ×3 (03:53→17:27)
[2020-12-14] MEDS: METOCLOPRAMIDE HCL 10 MG/2ML VIAL IV SCH ×4 (05:13→16:59)
[2020-12-14 05:20] LABS: BASOPHILS # (AUTO) 0.1 (0.0-0.1); BASOPHILS % 0.5 % (0.0-1.0); EOSINOPHILS # (AUTO) 0.1 (0.0-0.4); EOSINOPHILS % 0.4 % (0.0-6.0); HEMATOCRIT 28.3 % (38.2-49.6); LYMPHOCYTES # (AUTO) 3.4 (1.0-3.2); LYMPHOCYTES % 14.7 % (18.0-39.1); MEAN CORPUSCULAR HEMOGLOBIN 30.4 pg (28-32); MEAN CORPUSCULAR HGB CONC 28.3 g/dL (31-35); MEAN CORPUSCULAR VOLUME 107.6 fL (81-99); MONOCYTES # (AUTO) 3.7 (0.2-0.8); MONOCYTES % 15.7 % (4.4-11.3); NEUTROPHILS % 55.6 % (38.7-80.0); PLATELET COUNT 191 x10e3/uL (140-360); RED BLOOD COUNT 2.63 x10e6/uL (4.3-5.7); RED CELL DISTRIBUTION WIDTH 26.8 % (11.7-14.4)
[2020-12-14 05:29] LABS: ALBUMIN 2.6 g/dL (3.5-5.0); ALBUMIN/GLOBULIN RATIO 0.8 (0.8-2.0); ANION GAP 22.3 mmol/L (8-16); CALCIUM 7.6 mg/dL (8.4-10.2); CREATININE, SERUM 3.02 mg/dL (0.72-1.25); POTASSIUM 4.3 mmol/L (3.5-5.1)
[2020-12-14] MEDS: FENTANYL 2000MCG/NS 250 250 ML IV PRN ×2 (06:04→14:13)
[2020-12-14] MEDS: FOLIC ACID 1 MG TAB NG SCH ×2 (08:45→09:27)
[2020-12-14] MEDS: FUROSEMIDE INJ 10 MG/ML 4 ML VIAL IV SCH ×2 (08:45→09:27)
[2020-12-14] MEDS: BALSAM PERU/CASTOR OIL 60 GM OINT...G. TP SCH ×2 (08:45→09:27)
[2020-12-14] MEDS: FAMOTIDINE 20 MG/2 ML VIAL IV SCH ×3 (08:45→16:59)
[2020-12-14 09:14] LABS: ABG PH 7.11 (7.35-7.45)
[2020-12-14 09:15] LABS: ABG HCO3 31 mmol/L (22-26); ABG PCO2 99 mmHg (35-45); ABG PO2 62 mmHg (80-105); ABG TCO2 34
[2020-12-14 09:26] LABS: BAND NEUTROPHILS % (MANUAL) 5 %; HYPOCHROMASIA MODERATE; LYMPHOCYTES % (MANUAL) 16 % (19-48); METAMYELOCYTES % (MANUAL) 4 % (0-0); MONOCYTES % (MANUAL) 4 % (3.4-9.0); MYELOCYTES % (MANUAL) 8 % (0-0); NEUTROPHILS % (MANUAL) 56 % (40-74); NUCLEATED RED BLOOD CELLS 84; PLASMA CELLS %(MANUAL) 2; PLATELET ESTIMATE ADEQUATE; PLATELET MORPHOLOGY COMMENT NORMAL; PROMYELOCYTES % (MANUAL) 5 % (0-0); RBC MORPHOLOGY COMMENT ABNORMAL
[2020-12-14] MEDS: CALCIUM CARBONATE 500 MG CHEWABLE TABS PO SCH ×3 (09:27→21:00)
[2020-12-14 09:28] LABS: ANISOCYTOSIS MARKED; POLYCHROMASIA FEW
[2020-12-14] MEDS ORDERED: SODIUM BICARBONATE 8.4% 50 ML VIAL IV NR (10:00)
[2020-12-14] MEDS: INSULIN LISPRO 100 UNIT/1 ML 3ML VIAL SQ SCH ×2 (11:30→18:00)
[2020-12-14 12:02] LABS: ABG PCO2 85 mmHg (35-45); ABG PH 7.22 (7.35-7.45)
[2020-12-14 12:03] LABS: ABG HCO3 35 mmol/L (22-26); ABG PO2 43 mmHg (80-105); ABG TCO2 38
[2020-12-14] MEDS: VASOPRESSIN 60 UNIT in DEXTROSE 5% 50ML 57 ML IV SCH (14:11)
[2020-12-14] MEDS ORDERED: SODIUM CHLORIDE 0.9% 1000ML 1,000 ML ONE (16:51)
[2020-12-14] MEDS ORDERED: MORPHINE SULFATE INJ 4 MG/ML INJ 1ML IV PRN (18:45)
[2020-12-14] MEDS ORDERED: LORAZEPAM INJ 2 MG/ML VIAL IV PRN ×2 (18:45)
[2020-12-14] MEDS ORDERED: MORPHINE SULFATE INJ 2 MG/ML SYR IV PRN (18:45)
[2020-12-15] MEDS ORDERED: EYE LUBRICANT OPTH OINT 3.5GM TUBE OP SCH (09:00)
== END 2020-12-14 20:59 | disposition expired | DRG 870 ==
LOC: ER 11:23 → ERHOLD 13:02 → MED/SURG2 14:47 → IMCU 11-19 11:50 → ICU 11-21 18:19 → COVIDICU 12-11 23:00 → ICU 12-14 20:00 → UNDODISIN 12-15 01:00
PROVIDERS: ADMIT Internal Medicine; ATTEND Internal Medicine
PROC: 3E0DX3Z Introduction of Anti-inflammatory into Mouth and Pharynx, External Approach (ICD-10-PCS; 2020-11-17)
PROC: 8E0ZXY6 Isolation (ICD-10-PCS; 2020-11-17)
PROC: XW033E5 Introduction of Remdesivir Anti-infective into Peripheral Vein, Percutaneous Approach, New Technology Group 5 (ICD-10-PCS; 2020-11-18)
PROC: 02HV33Z Insertion of Infusion Device into Superior Vena Cava, Percutaneous Approach (ICD-10-PCS; 2020-11-19)
PROC: B548ZZA Ultrasonography of Superior Vena Cava, Guidance (ICD-10-PCS; 2020-11-19)
PROC: 3E0333Z Introduction of Anti-inflammatory into Peripheral Vein, Percutaneous Approach (ICD-10-PCS; 2020-11-21)
PROC: 02HV33Z Insertion of Infusion Device into Superior Vena Cava, Percutaneous Approach (ICD-10-PCS; 2020-11-23)
PROC: B548ZZA Ultrasonography of Superior Vena Cava, Guidance (ICD-10-PCS; 2020-11-23)
PROC: 02PYX3Z Removal of Infusion Device from Great Vessel, External Approach (ICD-10-PCS; 2020-11-23)
PROC: 0BH17EZ Insertion of Endotracheal Airway into Trachea, Via Natural or Artificial Opening (ICD-10-PCS; principal; 2020-12-01)
PROC: 5A1955Z Respiratory Ventilation, Greater than 96 Consecutive Hours (ICD-10-PCS; 2020-12-01)
PROC: 03HB33Z Insertion of Infusion Device into Right Radial Artery, Percutaneous Approach (ICD-10-PCS; 2020-12-01)
PROC: 3E043XZ Introduction of Vasopressor into Central Vein, Percutaneous Approach (ICD-10-PCS; 2020-12-01)
PROC: 02HV33Z Insertion of Infusion Device into Superior Vena Cava, Percutaneous Approach (ICD-10-PCS; 2020-12-09)
PROC: B548ZZA Ultrasonography of Superior Vena Cava, Guidance (ICD-10-PCS; 2020-12-09)
PROC: 5A1D70Z Performance of Urinary Filtration, Intermittent, Less than 6 Hours Per Day (ICD-10-PCS; 2020-12-09)
PROC: 5A1D70Z Performance of Urinary Filtration, Intermittent, Less than 6 Hours Per Day (ICD-10-PCS; 2020-12-10)
PROC: 5A1D70Z Performance of Urinary Filtration, Intermittent, Less than 6 Hours Per Day (ICD-10-PCS; 2020-12-11)
PROC: 5A1D70Z Performance of Urinary Filtration, Intermittent, Less than 6 Hours Per Day (ICD-10-PCS; 2020-12-13)
PROC: 5A1D70Z Performance of Urinary Filtration, Intermittent, Less than 6 Hours Per Day (ICD-10-PCS; 2020-12-14)
DX: A41.89 Other specified sepsis (principal); U07.1 COVID-19; J12.82 Pneumonia due to coronavirus disease 2019; J15.9 Unspecified bacterial pneumonia; K83.1 Obstruction of bile duct; J80 Acute respiratory distress syndrome; N17.0 Acute kidney failure with tubular necrosis; R65.21 Severe sepsis with septic shock; I82.622 Acute embolism and thrombosis of deep veins of left upper extremity; B17.9 Acute viral hepatitis, unspecified; T83.83XA Hemorrhage due to genitourinary prosthetic devices, implants and grafts, initial encounter; Z83.3 Family history of diabetes mellitus; F17.210 Nicotine dependence, cigarettes, uncomplicated; E11.649 Type 2 diabetes mellitus with hypoglycemia without coma; I11.9 Hypertensive heart disease without heart failure; T45.515A Adverse effect of anticoagulants, initial encounter; Y92.230 Patient room in hospital as the place of occurrence of the external cause; Z72.89 Other problems related to lifestyle; D69.6 Thrombocytopenia, unspecified; R31.9 Hematuria, unspecified; Y84.6 Urinary catheterization as the cause of abnormal reaction of the patient, or of later complication, without mention of misadventure at the time of the procedure; E83.51 Hypocalcemia; Z51.5 Encounter for palliative care
CPT/HCPCS: 31500; 36415; 36569; 36584; 36600; 71045; 74018; 76700; 80048; 80053; 82150; 82607; 82728; 82746; 82805; 82948; 83010; 83036; 83540; 83605; 83615; 83690; 84145; 84466; 84484; 85025; 85045; 85610; 85730; 86022; 86140; 87040; 93005; 93971; 94002; 94003; 94660; 99251; 99284; J0330; J0456; J0583; J0692; J0696; J1100; J1644; J1650; J1885; J1940; J2060; J2150; J2250; J2405; J2765; J2997; J3370; J7030; J7050; J7070; J7121; P9047; U0002